=== PATIENT | male | born 1940 | race Caucasian/White ===

== ENCOUNTER 2024-03-29 07:51 | Inpatient (IN) | payer MEDICARE, SELFPAY ==
[2024-03-29] VITALS (14 sets, daily range): BP systolic 163–194; BP diastolic 68–106; PULSE 54–75; RESP 18–95; TEMP 36.4–36.6; O2SAT 93–95; BMI 27.2
--- NOTE | 2024-03-29 08:34 | PC.NURSE ---
Patient presents to ED with c/o SOB with ambulating a short distance. Patient denies chest pain or cough. Patient BIBA, albuterol inhaler given and improvement noted by patient. Per EMS patient with Afib on trial lawyer from 60's to 89 HR. Patient comes from home, uses a walker for ambulation assistance. Patient call light within reach.
--- NOTE | 2024-03-29 11:09 | XR_ITS ---
Examination: PA lateral chest 2 views TECHNIQUE: Upright PA lateral chest 2 views Exam date and time: March 21, 2024 1142 hours Comparison January 05, 2021 INDICATIONS: Shortness of breath today. FINDINGS: Mild to moderate CHF Mild to moderate enlargement cardiac contour CABG Prominent vascular congestion Perihilar basilar edema with small to moderate bilateral pleural effusions Increased AP dimension chest IMPRESSION: Mild to moderate CHF
--- NOTE | 2024-03-29 11:09 | EKG_ITS ---
[facility] Test Date: 2024-03-29 Pat Name: PADMA DUGAN Department: Room: - Gender: Male Utilization Review Nurse: : 1940 Requested By: Jim Kendall Order Number: [id number] Reading MD: Jim Kendall Measurements Intervals [place] Rate: 61 P: [place]: QRS: 26 QRSD: 97 T: 0 QT: 217 QTc: 219 Interpretive Statements ATRIAL FIBRILLATION NONSPECIFIC ST & T-WAVE ABNORMALITY ABNORMAL RHYTHM ECG No previous ECG available for comparison /store/S0/[id number]/[id number].pdf
--- NOTE | 2024-03-29 11:09 | EDNOTE_ITS ---
<Statement entered by Miguelina Wei MD - 04/05/24 16:42> As co-signing physician, I was present and available for consult prn. I concur with the plan and care as documented by the midlevel provider. ED SOB =RME/HPI General Chief Complaint: Shortness of Breath/Dyspnea Stated Complaint: SOB Time Seen by Provider: 03/29/24 11:09 Arrival date/time: 03/29/24 07:51 84 year old male with past medical history of HTN, HDL, DM, bypass(x3) present to emergency room via EMS with c/o of shortness of breath this morning after walking to his truck. SEVERITY: Symptoms are described as being severe with limitations on activities of daily living CONTEXT: The patient is unable to identify any inciting events. DURATION/TIMING: The symptoms started approximately 1 day ago and have been constant since and have been progressive getting worse. ASSOCIATED SYMPTOMS: The patient is unable to identify any other associated symptoms. MODIFYING FACTORS: The patient is unable to identify any alleviating or aggravating symptoms. PERTINENT ROS: no fevers, no cough, no pleuritic pain, no ripping or tearing sensations, denies any lower extremity edema and no unilateral swelling, no chest pain no nausea,vomiting, diarrhea, no dizziness/headache no rash no loc/syncope episode no abd/back pain no dsyuria,urgency,frequency REVIEW OF SYSTEMS: See History of Present Illness - with the exception of those mentioned in the history of present illness, all other systems reviewed and reported as negative GENERAL: In general the patient is awake, in an emergency department gurney. HEAD/EYES/EARS/NOSE/THROAT: normo-cephalic, atraumatic, mucus membranes are moist, anicteric, palpebral conjunctiva is pink, trachea is midline. CARDIOVASCULAR: regular rate and regular rhythm, no murmurs, heart sounds are not distant, strong pulses in all four extremities that are equal and symmetric bilateral upper and lower extremities, normal capillary refill. CHEST/PULMONARY: normal chest rise and fall, good air movement, clear to auscultation bilaterally, normal inspiratory to expiratory ratios without evidence of respiratory distress. NECK: No midline/Paraspinal tenderness, no step off ROM/Strenght intact No Kernig and bruzinski sign. No trauma ABDOMEN: soft, not tender, no masses appreciated BACK: normal range of motion without pain. NEUROLOGICAL: cranio-facial features are symmetric, moves all four extremities equally without obvious limitations or weakness. EXTREMITY: no tenderness to palpation over the long bones or large joints of the bilateral upper and lower extremities, no joint swelling, no joint erythema, no signs of trauma, no unilateral leg swelling and no peripheral edema. SKIN: warm, dry, well-perfused, no jaundice, no rash, no telangiectasias or petechia. PSYCH: calm, cooperative, no evidence of psychosis or agitation Related Data Home Medications ?Medication ?Instructions ?Recorded ?Confirmed atorvastatin 40 mg tablet (Lipitor) 40 mg PO DAILY ##0 04/18/12 01/05/21 nebivolol 10 mg tablet (Bystolic) 10 mg PO DAILY ##0 04/18/12 01/05/21 benazepril 40 mg tablet (Lotensin) 40 mg PO QDAY #0 tabs 11/09/14 01/05/21 aspirin 81 mg tablet,delayed 81 mg PO QDAY 08/17/20 01/05/21 release glipizide 5 mg-metformin 500 mg 1.5 tab PO BID 08/17/20 01/05/21 tablet amlodipine 10 mg tablet 10 mg PO QDAY 01/05/21 01/05/21 cilostazol 50 mg tablet 50 mg PO BID 01/05/21 01/05/21 ferrous sulfate 325 mg (65 mg 325 mg PO QDAY 01/05/21 01/05/21 iron) tablet (iron) insulin glargine 100 unit/mL (3 30 unit subcut QDAY 01/05/21 01/05/21 mL) subcutaneous pen (Lantus Solostar U-100 Insulin) multivitamin 2 tab PO QDAY 01/05/21 01/05/21 Allergies Allergy/AdvReac Type Severity Reaction Status Date / Time No Known Allergies Allergy Verified 01/06/21 11:48 Course Course Course Narrative: plan cbc.cmp, bnp, trop,tsh, cta ekg, cxr covid/flu Quality Measures none Orders Category Date Time Status Admit to Inpatient Status Routine Admission 03/29/24 17:54 Ordered Patient Condition Routine Admission 03/29/24 17:54 Ordered Activity as Tolerated Routine Care 03/29/24 17:55 Ordered Bedside COVID-19 Antigen Test NOW Care 03/29/24 11:09 Active Bedside Influenza A&B Antigen Test NOW Care 03/29/24 11:[address] Screening NOW Care 03/29/24 15:45 Active Continuous Pulse Oximetry NOW Care 03/29/24 17:54 Ordered EKG (ED ONLY) *Do not use* NOW Care 03/29/24 11:10 Completed Fluid restriction QDAY Care 03/29/24 17:54 Ordered Miscellaneous Nursing Order NOW Care 03/29/24 17:59 Ordered Notify provider NEEDED Care 03/29/24 17:54 Ordered Obtain weight daily Care 03/29/24 17:55 Ordered Strict Intake and Output Routine Care 03/29/24 17:55 Ordered Consult to Cardiology Routine Cons 03/29/24 18:00 Ordered Diet Low Sodium (2gm) Diet 03/29/24 Dinner Ordered CA echo doppler complete Routine Exams 03/29/24 17:[address] angio chest Stat Exams 03/29/24 15:44 Completed EKG (ED Only) Stat Exams 03/29/24 11:09 Draft XR chest 2V Stat Exams 03/29/24 11:09 Completed BNP [B-Type Natriuretic Peptide] Stat Lab 03/29/24 11:00 Completed Basic Metabolic Panel AM DRAW Lab 03/30/24 05:00 Ordered Basic Metabolic Panel AM DRAW Lab 03/31/24 05:00 Ordered Basic Metabolic Panel AM DRAW Lab 04/01/24 05:00 Ordered Basic Metabolic Panel AM DRAW Lab 04/02/24 05:00 Ordered Basic Metabolic Panel AM DRAW Lab 04/03/24 05:00 Ordered Beta Hydroxybutyrate Stat Lab 03/29/24 11:52 Completed CBC AM DRAW Lab 03/30/24 05:00 Ordered CBC AM DRAW Lab 03/31/24 05:00 Ordered CBC AM DRAW Lab 04/01/24 05:00 Ordered CBC AM DRAW Lab 04/02/24 05:00 Ordered CBC AM DRAW Lab 04/03/24 05:00 Ordered CBC Stat Lab 03/29/24 11:00 Completed CMP [Comprehensive Metabolic Panel] Stat Lab 03/29/24 11:00 Completed Free T4 (Free Thyroxine) Stat Lab 03/29/24 11:00 Completed Lipase Stat Lab 03/29/24 11:00 Completed Lipid Panel AM DRAW Lab 03/30/24 05:00 Ordered Magnesium AM DRAW Lab 03/30/24 05:00 Ordered Magnesium AM DRAW Lab 03/31/24 05:00 Ordered Magnesium AM DRAW Lab 04/01/24 05:00 Ordered Magnesium AM DRAW Lab 04/02/24 05:00 Ordered Magnesium AM DRAW Lab 04/03/24 05:00 Ordered Phosphorous AM DRAW Lab 03/30/24 05:00 Ordered TSH [Thyroid Stimulating Hormone] Stat Lab 03/29/24 11:00 Completed Troponin I Stat Lab 03/29/24 11:00 Completed Acetaminophen Tab [Tylenol Tab] Med 03/29/24 17:54 Ordered 650 mg PO Q6H PRN Acetaminophen Tab [Tylenol Tab] Med 03/29/24 17:54 Ordered 650 mg PO Q6H PRN Furosemide Inj [Lasix Inj] Med 03/29/24 17:59 Once 20 mg IVP X1 ONE Furosemide Inj [Lasix Inj] Med 03/30/24 09:00 Ordered 40 mg IVP QDAY Furosemide [Lasix Inj] Med 03/29/24 11:59 Discontinued 20 mg IVP X1 ONE Heparin Inj Med 03/29/24 21:00 Ordered 5,000 unit SC BID Nebivolol Med 03/29/24 18:15 Ordered 10 mg PO DAILY Ondansetron Inj [Zofran Inj] Med 03/29/24 17:54 Ordered 4 mg IV Q6H PRN Pantoprazole [Protonix] Med 03/30/24 09:00 Ordered 40 mg PO QDAY amLODIPine BESYLATE [Norvasc] Med 03/29/24 18:05 Ordered 10 mg PO QDAY cilostazoL [Pletal] Med 03/30/24 09:00 Ordered 100 mg PO DAILY hydrALAZINE HCL [Apresoline] Med 03/29/24 18:15 Ordered 50 mg PO TID Code Status Routine Oth 03/29/24 17:54 Ordered Oxygen Delivery NOW RT 03/29/24 11:22 Active Oxygen Delivery PRN RT 03/29/24 17:54 Ordered Reevaluation(s) Reevaluation #1: pt is feeling better, currently at 96% on RA, will do ambulation trail. Reevaluation #2: attempt to ambulated patient, currently at 84% RA, will get CTA to rule out PE then admit for hypoxia 88 % RA while ambulating , pt is willing to be admit Vital Signs Vital signs: Vital Signs Pulse Rate 74 03/29/24 08:03 Shortness of Breath / Dyspnea Patient data External records reviewed:: [facility] previous records Clinical information provided by:: patient Social determinants that could affect healthcare access:: none Patient has the following chronic illnesses:: HTN, Bypass, HDL, DM How is presenting disease/condition affected by chronic disease/condition?: exacerbated by Evaluation data The following diagnostics were reviewed and interpreted by me:: lab results, radiology exam(s) and EKG tracing(s) Lab and/or radiology exams considered but not ordered:: none Interpretation Summary: cxr: Mild to moderate CHF Mild to moderate enlargement cardiac contour CABG Prominent vascular congestion Perihilar basilar edema with small to moderate bilateral pleural effusions Increased AP dimension chest IMPRESSION: Mild to moderate CHF BNP 403 given lasix 20mg IV cbc/cmp similar or improvement from previous labs trop negative covid/flu negative CTA: Negative for pulmonary artery emboli Pulmonary artery hypertension Mild CHF Multiple thyroid nodules TSH: 5 T4 wnl Medications / Prescriptions Medications or Prescriptions considered but not ordered:: none Medication administrations:: Medication Administration History Discontinued Medications Furosemide (Furosemide Inj 10 Mg/Ml Vial 2 Ml) 20 mg IVP X1 ONE Stop: 03/29/24 12:00 Last Admin: 03/29/24 13:01 Dose: 20 mg Documented By: CHRISTELLE lasix 20mg IV Consultations Consultation(s) initiated? (list below): Yes Consultation #1 (Physician, Specialty, Details): 170 called out to Hospitalist for admission Consultation #2 (Physician, Specialty, Details): 170 spoke with hosptial resident will speak with Dr. Kaplan Diagnosis Shortness of Breath Differential Diagnosis: acute exacerbation of chronic obstructive airways disease, congestive heart failure, community acquired pneumonia, asthma with exacerbation, pulmonary embolism and other Most likely diagnosis given after review of the tests above:: CHF Admission Indicated Admission indicated?: indicated Admission Request Was there a request for admission?: Yes Admission Attestation Admission request attestation: Discussed case with [] from Hospitalist service regarding admission. Discussed patients ED course, exam findings, labs, and radiology results. The Hospitalist [agrees,declines] to accept the patient for admission. Disposition Plan Disposition Plan: Admit Discharge Plan Plan Patient Disposition: Admit Acute Care w/in Hospital Health Concerns: Follow up with your press and blow machine tender as directed Return to ED if symptoms worsen Prescriptions/Referrals Prescriptions/Med Rec: No Action atorvastatin [Lipitor] 40 MG tablet 40 mg PO DAILY Qty: 0 Bystolic 10 MG tablet 10 mg PO DAILY Qty: 0 benazepril [Lotensin] 40 MG tablet 40 mg PO QDAY Qty: 0 glipizide-metformin 5-500 mg Tablet 1.5 tab PO BID Hold Instructions: Resume on 08/20/20. start on friday aspirin 81 mg Tablet,Delayed Release (Dr/Ec) 81 mg PO QDAY Hold Instructions: Resume on 08/18/20. restart aspirin tomorrow multivitamin Tablet 2 tab PO QDAY cilostazol 50 mg tablet 50 mg PO BID amlodipine 10 mg tablet 10 mg PO QDAY ferrous sulfate [iron] 325 mg (65 mg iron) Tablet 325 mg PO QDAY Lantus Solostar U-100 Insulin 100 unit/mL (3 mL) insulin pen 30 unit SUBCUT QDAY Referrals: Mendez Whiting MD [Primary Care Provider] - In 1 week Problem List Clinical Impression: CHF (congestive heart failure), Acute dyspnea, Hypoxia Patient/Caregiver Discharge Instructions Education Materials: Coping with Heart Failure Print Language: Indian Stand Alone Forms: Varsha Award Info., Patient Portal Info Letter
[2024-03-29 11:22] LABS: Basophils # (Auto) 0.1 Thou/mm3 (0.0-0.2); Basophils % (Auto) 1 % (0-2.5); Eosinophils # (Auto) 0.3 Thou/mm3 (0.0-0.5); Eosinophils % (Auto) 4 % (0-10); Hemoglobin 11.3 g/dL (13.5-16.0); Immature Granulocytes % (Auto) 1 % (0-0); Immature Granulocytes Auto 0.04 Thou/mm3 (0.00-0.00); Lymphocytes # (Auto) 1.2 Thou/mm3 (1.0-4.8); Lymphocytes % (Auto) 15 % (10-50); Mean Corpuscular HGB Conc 33.2 g/dl (31.0-37.0); Mean Corpuscular Hemoglobin 30.6 pg (25.0-35.0); Mean Corpuscular Volume 92 fL (80-100); Monocytes # (Auto) 0.5 Thou/mm3 (0.0-0.8); Monocytes % (Auto) 6 % (0-12); Neutrophils # (Auto) 6.1 Thou/mm3 (1.8-7.7); Neutrophils % (Auto) 74 % (37-80); Nucleated Red Blood Cell % 0 /100 WBC (0); Platelet Count 276 Thou/mm3 (140-440); RDW Standard Deviation 52.6 fL (35.1-43.9); Red Blood Count 3.69 Miln/mm3 (4.50-5.90); White Blood Count 8.2 Thou/mm3 (3.8-10.6)
[2024-03-29 11:41] LABS: Alanine Aminotransferase 28 U/L (10-49); Albumin/Globulin Ratio 1.3 (1.2-2.2); Alkaline Phosphatase 88 U/L (46-116); Anion Gap 6 (7-16); Aspartate Amino Transferase 25 U/L (0-34); BUN/Creatinine Ratio 18 Ratio (12-20); Bilirubin,Total 0.8 mg/dL (0.3-1.2); Blood Urea Nitrogen 31 mg/dL (9-23); Calcium 9.4 mg/dL (8.3-10.6); Calcium (Corrected) 9.4 mg/dL (8.5-10.1); Chloride 109 mMol/L (98-107); Creatinine (Component) 1.7 mg/dL (0.6-1.3); Estimated Creatinine Clearance 34.9 mL/min (>60); Glucose 127 mg/dL (74-106); Lipase 41 U/L (12-53); Osmolality,Calculated 282 (275-295); Sodium 137 mMol/L (136-145); Troponin I < 0.020 ng/mL (0.0-0.045); eGFR 39 See Note
[2024-03-29 11:49] LABS: B-Type Natriuretic Peptide 403 pg/mL (0-100)
[2024-03-29 11:57] LABS: Beta Hydroxybutyrate 0.2 mmol/L (<0.6)
[2024-03-29] MEDS: FUROSEMIDE INJ 10 MG/ML VIAL 2 ML 20 MG IVP (13:01)
--- NOTE | 2024-03-29 15:44 | XR_ITS ---
Examination: CTA chest with intravenous contrast 2-D reconstructions 3-D reconstructions, vascular Date and time of exam: March 29 2024 at 1616 hours INDICATIONS: Hypoxia shortness of breath chest pain today CTDI: vol (mGy) 24.3 DLP: (mGycm) 445 Technique: Multiple axial sections of the thorax have been obtained. 3 mm slice thickness, from below the hemidiaphragms to above the apices of the lungs. Mediastinal and lung density settings have been obtained. 2-D sagittal and coronal reconstructions. 3-D angiographic renderings, 3-D volume renderings, 3D post processing, vascular maximum intensity projections obtained. Contrast administered is 60 cc Isovue-300. Low dose protocols were performed. One or more of the following dose reduction techniques were used; automated exposure control, adjustment of the mA and/or KV according to patient size, use of iterative reconstruction technique. Findings: 8 mm left thyroid nodule image 12 8 mm left thyroid nodule image 22 12 mm right thyroid nodule image 27 Thoracic aortic calcification, no aneurysmal dilatation or dissection Main pulmonary artery segment is enlarged, 41 mm No pulmonary artery emboli Significant vascular congestion Moderate right pleural effusion mild left pleural effusion Dilated bronchi in the lower lobes Mild septal edema in the lower lung zones No visualized liver or splenic lesion Absent gallbladder IMPRESSION: Negative for pulmonary artery emboli Pulmonary artery hypertension Mild CHF Multiple thyroid nodules
--- NOTE | 2024-03-29 16:03 | PC.NURSE ---
Patient ambulated around ED for 2 laps around the nurse station with assistance of IV pole as patient normally ambulates with walker at home, after patient was guided back to room and placed on pulse oximeter with saturations down to 88% on room air.
[2024-03-29 17:29] LABS: Free T4 (Free Thyroxine) 1.13 ng/dL (0.89-1.76); Thyroid Stimulating Hormone 5.72 uIU/mL (0.55-4.78)
--- NOTE | 2024-03-29 17:58 | ECHO_ITS ---
Transthoracic Echo Report Ht (in): 72 Wt (lb): 201 Exam Location: Portable Status: Emergency Refrigeration Tech: Lynn Bustillos Indications: Procedure Performed: BP: 167 / 79 HR: 58 Rhythm: Bradycardia/, Atrial fibrillation Technical Quality: Fair MEASUREMENTS (Male / Female) Normal Values 2D ECHO LV Diastolic Diameter PLAX 5.1 cm 4.2 - 5.9 / 3.9 - 5.3 cm LV Systolic Diameter PLAX 3.2 cm IVS Diastolic Thickness 1.0 cm 0.6 - 1.0 / 0.6 - 0.9 cm LVPW Diastolic Thickness 0.9 cm 0.6 - 1.0 / 0.6 - 0.9 cm LV Relative Wall Thickness 0.4 LVOT Diameter 1.8 cm LA Volume Index 52.9 cm?/m? 16 - 28 cm?/m? Ascending Aorta Diameter 3.3 cm M-MODE Aortic Root Diameter MM 3.4 cm LA Systolic Diameter MM 5.6 cm LA Ao Ratio MM 1.6 AV Cusp Separation MM 2.3 cm DOPPLER AV Peak Velocity 202.0 cm/s AV Peak Gradient 16.3 mmHg AV Mean Gradient 7.0 mmHg AV Velocity Time Integral 43.4 cm LVOT Peak Velocity 152.0 cm/s LVOT Peak Gradient 9.2 mmHg LVOT Velocity Time Integral 29.1 cm LVOT Cardiac Index 1982.7 cm?/min?m? AV Area Cont Eq vti 1.7 cm? AV Area Cont Eq pk 1.9 cm? MV Peak Velocity 189.0 cm/s MV Peak Gradient 14.3 mmHg MV Mean Velocity 86.7 cm/s MV Mean Gradient 4.0 mmHg MV Area PHT 1.8 cm? MR Peak Velocity 375.0 cm/s MR Peak Gradient 56.3 mmHg Mitral E Point Velocity 172.0 cm/s Mitral A Point Velocity 5.3 cm/s Mitral E to A Ratio 32.5 LV E' Lateral Velocity 8.6 cm/s Mitral E to LV E' Lateral Ratio 20.0 LV E' Septal Velocity 6.3 cm/s Mitral E to LV E' Septal Ratio 27.3 TR Peak Velocity 163.0 cm/s TR Peak Gradient 10.6 mmHg FINDINGS Left Ventricle Normal left ventricular size, wall thickness, systolic function with no obvious regional wall motion abnormalities. The ejection fraction is visually estimated at 60-65 %. Right Ventricle The right ventricle is mildly dilated. Normal systolic function. The estimated right ventricular sys tolic pressure, 16mmHg. RAP 5. Left Atrium The left atrium is severely dilated. Right Atrium The right atrium is mildly dilated. Atrial Septum The interatrial septum appears normal with no evidence of a shunt. Aorta The aorta is normal by two-dimensional, color flow and Doppler interrogation. Mitral Valve The mitral valve is mildly MAC. There is mild mitral valve regurgitation. Aortic Valve The aortic valve is trileaflet and normal by two-dimensional, color flow and Doppler interrogation. There is trace aortic valve regurgitation. Tricuspid Valve The tricuspid valve is normal by two-dimensional, color flow and Doppler interrogation. There is mil d tricuspid valve regurgitation. Pulmonic Valve There is trace pulmonic valve regurgitation. Vessels The pulmonary artery appears normal. The inferior vena cava pulmonary and hepatic veins appear billie l. Pericardium The pericardium is normal by two-dimensional imaging. There is no significant pericardial effusion. CONCLUSIONS Normal LV size and function. 60-65% Mild RV dilatation. Normal RV function. Severe LA dilatation. Mild RA dilatation Mild MAC. Mild MR, Mild TR. Trace AI, PI. Bouchra Clifton (Electronically Signed) Final Date: 30 March 2024 23:10
--- NOTE | 2024-03-29 18:09 | ESHP_ITS ---
Documentation for date of: 03/29/24 [facility] History of Present Illness History of present illness: Dominik Willard is an 84-year-old male with a past medical history of CAD status post CABG 2009, hypertension, hyperlipidemia, type 2 diabetes mellitus, and PAD who presents with tachypnea and LINTON for 4 days. Patient states that he was in his usual state of health until Friday, on his daily 3/4 mile walk but experienced tachypnea and LINTON, which is unusual for him. Symptoms progressed and prompted him to visit the ED. He has never had to come to the ED for similar symptoms in the past, denies chest discomfort, denies lower extremity edema, and is not aware of a prior diagnosis of heart failure. He is followed outpatient by Dr. Roy. Otherwise, denies fever, chills, cough, abdominal pain, urinary symptoms, change in bowel movements. ED course: Upon arrival to ED patient O2 88-99% on room air, increased to 93-94% on 2 L NC. During patient encounter, on room air saturating 93% on room air. BP 181/68, RR 21, otherwise unremarkable. Creatinine 1.7 (baseline 1.5-1.8), GFR 39, BNP 403, troponins negative, TSH elevated, free T4 within normal limits. CTA chest: Negative for PE, significant vascular congestion, moderate right and mild left pleural effusions EKG: Heart rate 61, A-fib PMHx: Hypertension, hyperlipidemia, type 2 diabetes mellitus, CAD, PAD, distant history of prostate cancer Medications: Hydralazine 50 mg 3 times daily, atorvastatin 40 mg daily, amlodipine 10 mg daily, nebivolol 10 mg daily, aspirin 81 mg daily, cilostazol 100 mg daily, benazepril 40 mg daily, glipizide-metformin 5-500 mg daily SHx: Distant history of smoking 2-3 packs/day in high school, no alcohol, no illicit drug use PSHx: Cholecystectomy, CABG Review of Systems Review of Systems Systems Reviewed: All systems reviewed, normal except as documented Exam Vital Signs Temp Pulse Resp BP Pulse Ox O2 Del Method O2 Flow Rate 97.7 F 69 23 H 194/93 H 93 L Room Air 2 03/29/24 16:15 03/29/24 16:15 03/29/24 16:15 03/29/24 16:15 03/29/24 16:15 03/29/24 16:15 03/29/24 10:44 Narrative Exam General: AOx3, no acute distress, able to speak full sentences HEENT: NC/AT, mucous membranes moist, bilateral sclera anicteric Cardiovascular: S1/S2 present, no murmurs appreciated Pulmonary: clear to auscultation bilaterally, no rales/rhonchi/wheezes Abdominal: soft, non-tender, non-distended, no rebound/guarding, normal bowel sounds present Musculoskeletal: 1+ bilateral lower extremity edema; normal ROM Skin: warm and dry, intact, no rashes Neuro: CN II-XII intact, no focal deficits Results: Labs 04/01/24 04:52 04/01/24 14:10 Labs: Short CBC 03/29/24 Range/Units 11:00 WBC 8.2 (3.8-10.6) Thou/mm3 Hgb 11.3 L (13.5-16.0) g/dL Hct 34.0 L (41.0-53.0) % Plt Count 276 (140-440) Thou/mm3 BMP 03/29/24 11:00 Sodium 137 Potassium 4.0 Chloride 109 H Carbon Dioxide 22.0 BUN 31 H Creatinine 1.7 H Glucose 127 H Calcium 9.4 Cardiac Enzymes 03/29/24 Range/Units 11:00 Troponin I < 0.020 (0.0-0.045) ng/mL Liver Function 03/29/24 Range/Units 11:00 Total Bilirubin 0.8 (0.3-1.2) mg/dL AST 25 (0-34) U/L ALT 28 (10-49) U/L Alkaline Phosphatase 88 (46-116) U/L Albumin 4.0 (3.4-4.8) gm/dL Quality Measures Quality Measures none Advance care planning discussed with:: patient Medications Home Medications and Allergies Home Medications ?Medication ?Instructions ?Recorded ?Confirmed ?Type atorvastatin 40 mg tablet (Lipitor) 40 mg PO DAILY ##0 04/18/12 03/30/24 History nebivolol 10 mg tablet (Bystolic) 10 mg PO DAILY ##0 04/18/12 03/30/24 History benazepril 40 mg tablet (Lotensin) 40 mg PO QDAY #0 tabs 11/09/14 03/30/24 History aspirin 81 mg tablet,delayed 81 mg PO QDAY 08/17/20 03/30/24 History release glipizide 5 mg-metformin 500 mg 1 tab PO BID 08/17/20 03/30/24 History tablet amlodipine 10 mg tablet 10 mg PO QDAY 01/05/21 03/30/24 History cilostazol 50 mg tablet 100 mg PO BID 01/05/21 03/30/24 History ferrous sulfate 325 mg (65 mg 65 mg PO QDAY 01/05/21 03/30/24 History iron) tablet (iron) insulin glargine 100 unit/mL (3 10 unit subcut QDAY 01/05/21 03/30/24 History mL) subcutaneous pen (Lantus Solostar U-100 Insulin) multivitamin 2 tab PO QDAY 01/05/21 03/30/24 History hydralazine 50 mg tablet 50 mg PO TID 03/30/24 03/30/24 History Allergies Allergy/AdvReac Type Severity Reaction Status Date / Time No Known Allergies Allergy Verified 01/06/21 11:48 Visit Medications Discontinued Medications Furosemide (Furosemide Inj 10 Mg/Ml Vial 2 Ml) 20 mg IVP X1 ONE Stop: 03/29/24 12:00 Last Admin: 03/29/24 13:01 Dose: 20 mg Assessment & Plan Plan Dominik Willard is an 84-year-old male with a past medical history of CAD status post CABG 2009, hypertension, hyperlipidemia, type 2 diabetes mellitus, and PAD who presents with tachypnea and LINTON for 4 days. Patient states that he was in his usual state of health until Friday, on his daily 3/4 mile walk but experienced tachypnea and LINTON, which is unusual for him. Symptoms progressed and prompted him to visit the ED. He has never had to come to the ED for similar symptoms in the past, denies chest discomfort, denies lower extremity edema, and is not aware of a prior diagnosis of heart failure. He is followed outpatient by Dr. Roy. Admitted for work-up and evaluation for new onset heart failure. #Acute hypoxic respiratory failure #? Congestive heart failure LINTON for 4 days, BLE edema, BNP 400s, signs of vascular congestion on imaging. Given risk factors of HTN, T2DM, HLD, history of CABG and PAD, suspect ischemic cardiomyopathy causing HF. Echo 2021 showed EF 65%. Will obtain echo this admission. -Cardiology consulted, appreciate recommendations -Lasix 40 mg IV daily -Monitor K and Mg, replete as necessary -Fluid restriction 1.5 L/day, daily weights, strict I/O -Follow-up echo #Hypertensive urgency #Hypertension Will defer home benazepril given elevated creatinine and recent CTA. -Amlodipine 10 mg p.o. daily -Hydralazine 50 mg p.o. twice daily -Nebivolol 10 mg p.o. daily #Chronic kidney disease, stage 3B Creatinine 1.7, baseline 1.4-1.8. GFR 39. #Type 2 diabetes mellitus Will defer home glipizide-metformin. On home Lantus 5 mg twice daily. -Lantus 5 mg daily -Sensitive SSI lispro -Follow-up A1c #Coronary artery disease status post CABG -Aspirin 81 mg p.o. daily -Atorvastatin 40 mg p.o. at bedtime -Follow-up lipid panel #Peripheral artery disease -Cilostazol 100 mg p.o. daily Hospital management: Disposition: 2-3 hospital nights Fluids: Will defer in light of CHF exacerbation Diet: Low-sodium Lines: Peripheral DVT prophylaxis: Heparin SC twice daily GI prophylaxis: Pantoprazole 40 mg p.o. daily Bhagat: Not indicated CODE STATUS: full code ----- Plan discussed with attending physician Dr. Domenica Lopez MD PGY-1 Internal Medicine Attending Provider Attestation/Addendum Face to face evaluation was performed by me. I have personally seen and examined the patient. I discussed the assessment and plan with the entire medicine team. I reviewed available medical records, imaging studies, laboratory results. I agree with the above subjective data, objective findings, assessment and plan except as corrected by me or noted below acute hypoxic respiratory failure hypertensive emergency acute chf, unknown type, unable to further specify - iv diuresis wean o2 as able echo monitor labs and vitals, also clinical course closely -
[2024-03-29] MEDS: amLODIPine BESYLATE 5 MG TABLET 10 MG PO (20:28)
[2024-03-29] MEDS: ASPIRIN EC 81 MG TABEC PO (20:29)
[2024-03-29] MEDS: hydrALAZINE HCL 25 MG TABLET 50 MG PO (20:29)
[2024-03-29] MEDS: ATORVASTATIN CALCIUM 20 MG TABLET 40 MG PO (20:30)
[2024-03-29] MEDS: NEBIVOLOL HCL 5 MG TABLET (NON-FORMULARY) 10 MG PO (20:30)
[2024-03-29] MEDS: FUROSEMIDE INJ 10 MG/ML 4ML VIAL 20 MG IVP (20:45)
--- NOTE | 2024-03-29 21:09 | PC.NURSE ---
SPOKE TO DR GROVER HOLDING HEPARIN UNTIL GET TO FLOOR.
--- NOTE | 2024-03-29 21:35 | PC.NURSE ---
REPORT CALLED TO MATTHEW MARADIAGA. ALL QUESTIONS ASKED AND ANSWERED. PATIENT TRANSFERRED TO FLOOR WITH STAFF. NO DISTRESS NOTED ON TRANSFER.
[2024-03-29] MEDS: HEPARIN SOD INJ 5000 UNIT/ML VIAL SC (22:09)
[2024-03-30] VITALS (19 sets, daily range): BP systolic 136–167; BP diastolic 59–93; PULSE 36–91; RESP 15–93; TEMP 36.6–37.1; O2SAT 93–98; BMI 26.7
--- NOTE | 2024-03-30 02:30 | PC.NURSE ---
PATIENT HR WENT DOWN TO 30'S. PATIENT WAS ASLEEP AND NO DISTRESS. WHEN WOKEN UP HR WENT UP TO 66, RR 18, O2 SAT 99% 2LNC, T: 98.3, BP 96/77 L ARM, 170/[address] SCHAEFFER, STATED TO RETAKE BP IN 30 MINS AND NOTIFY HER.
--- NOTE | 2024-03-30 03:45 | PC.NURSE ---
Patient BP IS 167/79, NOTIFIED DR SCHAEFFER OF BP AND HR 60'S. NO NEW ORDERS RECEIVED.
[2024-03-30 06:12] LABS: Basophils # (Auto) 0.1 Thou/mm3 (0.0-0.2); Basophils % (Auto) 1 % (0-2.5); Eosinophils # (Auto) 0.4 Thou/mm3 (0.0-0.5); Eosinophils % (Auto) 5 % (0-10); Hematocrit 32.4 % (41.0-53.0); Hemoglobin 10.7 g/dL (13.5-16.0); Immature Granulocytes % (Auto) 0 % (0-0); Immature Granulocytes Auto 0.03 Thou/mm3 (0.00-0.00); Lymphocytes # (Auto) 1.6 Thou/mm3 (1.0-4.8); Lymphocytes % (Auto) 21 % (10-50); Mean Corpuscular Hemoglobin 30.2 pg (25.0-35.0); Mean Corpuscular Volume 92 fL (80-100); Monocytes # (Auto) 0.7 Thou/mm3 (0.0-0.8); Monocytes % (Auto) 10 % (0-12); Neutrophils # (Auto) 4.8 Thou/mm3 (1.8-7.7); Neutrophils % (Auto) 62 % (37-80); Nucleated Red Blood Cell % 0 /100 WBC (0); Platelet Count 265 Thou/mm3 (140-440); RDW Standard Deviation 51.7 fL (35.1-43.9); Red Blood Count 3.54 Miln/mm3 (4.50-5.90); White Blood Count 7.7 Thou/mm3 (3.8-10.6)
[2024-03-30 06:17] LABS: Glucose Estimated Average 134 mg/dL (80-131); Hemoglobin A1C 6.3 % Hgb (4.8-6.0)
[2024-03-30 07:04] LABS: Anion Gap 7 (7-16); BUN/Creatinine Ratio 18 Ratio (12-20); Blood Urea Nitrogen 29 mg/dL (9-23); Calcium 9.7 mg/dL (8.3-10.6); Carbon Dioxide 24.2 mMol/L (20.0-31.0); Chloride 108 mMol/L (98-107); Cholesterol 151 mg/dL (132-200); Creatinine (Component) 1.6 mg/dL (0.6-1.3); Glucose 99 mg/dL (74-106); HDL Cholesterol 38 mg/dL (40-60); LDL Cholesterol,Calculated 97 mg/dL (0-130); Osmolality,Calculated 283 (275-295); Phosphorous 3.7 mg/dL (2.4-5.1); Potassium 3.6 mMol/L (3.4-5.1); Sodium 139 mMol/L (136-145); Triglycerides 79 mg/dL (30-150); eGFR 42 See Note
--- NOTE | 2024-03-30 09:15 | PC.NURSE ---
Pt scheduled for beta alexy, Nebivolol this AM. Dr. Lopez made aware of patient SB with HR in 30's per third shift lieutenant report. Cardiac strips captured 34-39 bpm; per Farrah RN lowest rate visually seen was 31 bpm. I reported to Dr. Lopez patient sustaining HR in 60's at this current time and if indicated to administer; Dr. Lopez with orders to administer despite SB. Orders carried out; Charge Nurse Hanna and Game Preserve Manager made aware of concern; we will continue to monitor cardiac exercise specialist and patient for symptoms.
[2024-03-30] MEDS: amLODIPine BESYLATE 5 MG TABLET 10 MG PO (09:23)
[2024-03-30] MEDS: cilostazoL 50 MG TABLET 100 MG PO (09:23)
[2024-03-30] MEDS: POTASSIUM CHLORIDE 20 mEq TABCR 40 MEQ PO (09:24)
[2024-03-30] MEDS: FUROSEMIDE INJ 10 MG/ML 4ML VIAL 40 MG IVP (09:24)
[2024-03-30] MEDS: ASPIRIN EC 81 MG TABEC PO (09:24)
[2024-03-30] MEDS: PANTOPRAZOLE 40 MG TABLET PO (09:24)
[2024-03-30] MEDS: INSULIN GLARGINE (Lantus) 5 UNIT/0.05 ML (PER 5 UNITS) SC (09:25)
[2024-03-30] MEDS: HEPARIN SOD INJ 5000 UNIT/ML VIAL SC ×2 (09:26→21:28)
--- NOTE | 2024-03-30 09:31 | ESCONSULT_ITS ---
<Statement entered by Alfie Roy MD - 04/01/24 20:18> I personally examined the patient evaluated the patient appears to be in clinically better he is admitted to hospital with congestive heart failure symptoms has known history of CAD bypass surgery HFpEF now has atrial fibrillation appears to be precipitating factor and his congestive heart failure. Clinically improving continue diuretic therapy and rate control for A- fib as well as amiodarone. I evaluated the patient with the resident physician Dr. Ibeth Wilson, PGY 2 recommended to continue medical management no plan for any current intervention diurese the patient possibly discharge within 1 to 2 days. I will do further evaluation as an outpatient. All essential complaints are reviewed by me personally spent more than 45 minutes going over all the questions concerns evaluation and management. HPI Data of Consult Requesting Physician: Scottie Aslton MD Admitting Provider: Liang Metzger MD Attending Provider: Scottie Alston MD Primary Care Provider: Mendez Whiting MD Consult Narrative Reason for consult: New onset CHF History of present illness: An 84-year-old hard of hearing male who ambulates via walker with history of CAD status post CABG 2009 (not oxygen dependent at home ), hypertension, hyperlipidemia, type 2 diabetes mellitus, and PAD presented to the ED of [facility] on 03/29/2024 for chief complaint of shortness of breath. Patient states that he was in his usual state of health until Friday03/26/2024 on his daily 3/4 mile walk.Exertional shortness of breath noted on his daily walk. Patient denied any chest pain, palpitations, nausea, vomiting, blurry vision, dizziness, abdominal pain, jaw pain, shoulder discomfort, diaphoresis, constipation or diarrhea. He stated when he was ready to put his walker into his truck, he did not had the strength to do it and he resumed being short of breath. 03/21/2024, he became extremely concerned and voiced this to his . His called the emergency department. The ambulance brought him into the ED. He is followed outpatient by Dr. Roy. Patient was admitted for management of hypertensive urgency and AHRF 2/2 volume overloaded state likely 2/2 CHF. Cardiology was consulted for new onset CHF and atriall fibrillation. ED course: Blood pressure: 181/68, heart rate 74, respiratory rate 18, temperature 97.7 F, O2 sat 94% on 2L NC. Creatinine 1.7 (baseline 1.5-1.8), GFR 39, BNP 403, troponins negative, TSH elevated, free T4 within normal limits. CTA chest: Negative for PE, 8 mm left thyroid nodule , 8 mm left thyroid nodule,12 mm right thyroid nodule, Moderate right pleural effusion mild left pleural effusion Thoracic aortic calcification, no aneurysmal dilatation or dissection, Main pulmonary artery segment is enlarged, 41 mm, Significant vascular congestion, Dilated bronchi in the lower lobes, Mild septal edema in the lower lung zones EKG showed A-fib, Heart rate 61 CXr showed Mild to moderate CHF, Mild to moderate enlargement cardiac contour, CABG, Prominent vascular congestion with joaquin B lines,, Perihilar basilar edema with small to moderate bilateral pleural effusions, Increased AP dimension chest PMHx: Hypertension, hyperlipidemia, type 2 diabetes mellitus, CAD, PAD, distant history of prostate cancer Allergies: None Medications: Hydralazine 50 mg 3 times daily, atorvastatin 40 mg daily, amlodipine 10 mg daily, nebivolol 10 mg daily, aspirin 81 mg daily, cilostazol 100 mg daily, benazepril 40 mg daily, glipizide-metformin 5-500 mg daily Mother: Diabetes maternal side; paternal-none Social history: Denies drinking or smoking, 7years of smoking history?1.5 pack/day in his early 30s. Denies any illicit drug use. Surgical history: CABG s/p stents, cholecystectomy,left ankle surgical repair, hip surgery cc:: cc: Scottie Alston MD Review of Systems Review of Systems Systems Reviewed: All systems reviewed, normal except as documented Past Medical History Past Medical History NEUROLOGIC: Negative Neurological Disorders or Seizures CARDIAC: Positive Coronary Artery Disease, Hypercholesterolemia and Hypertension; Negative Congestive Heart Failure RESPIRATORY: Positive Pneumonia; Negative Chronic Obstructive Pulmonary Disease (COPD) GASTROINTESTINAL: Positive Gall Bladder Disease (had removed around 8 years ago) GENITOURINARY: Positive Prostate Cancer (4 years ago. states caught early. did radiation); Negative Genitourinary Disorders or Renal Disease MUSCULOSKELETAL: Positive Arthritis and Fractures (left hip. fell off ladder); Negative Musculoskeletal Disorders ENT: Positive Deafness ([place] angel[place]. hearing aids left at homw) ENDOCRINE: Positive Diabetes Mellitus Type 2; Negative Diabetes Mellitus Type 1 HEMATOLOGIC: Negative Blood Disorders OTHER HISTORY: Positive Cancer and Prostate Cancer (4 years ago. states caught early. did radiation); Negative Blood Transfusions, Blood Transfusion Reaction or Anesthesia Reactions Family History OTHER FAMILY HX: Denies family history of blood clots Surgical History SURGICAL: Positive Cardiac Surgery, Coronary Artery Bypass Graft and Eye Surgery (angelique eye implants) OTHER SURGICAL HX: cholecystectomy and L ankle surgery decades ago. Social History SMOKING STATUS: Former smoker SUBSTANCE USE: does not use Travel History EBOLA RISK: No Past Medical History Comments PMH COMMENT: CABG 11 years ago. Type 2 Diabetes Hypertension Hyperlipidemia Exam Vital Signs Temp Pulse Resp BP Pulse Ox O2 Del Method O2 Flow Rate 98.0 F 88 15 159/79 H 96 Room Air 2 03/30/24 08:00 03/30/24 09:24 03/30/24 08:00 03/30/24 09:24 03/30/24 08:00 03/30/24 08:00 03/30/24 06:40 Narrative Exam Constitutional: hard of hearing male with eye glasses, well-developed, well- nourished, in no acute distress, lying in bed. HEENT: NCAT, EOMI, reactive round pupils b/l, patent nares b/l, moist mucous membranes, on 2L nasal cannula Lung: CTAB, no wheezing, no rhonchi, no crackles. diminished breath sounds lower lobes bilaterally Heart: Regular S1S2, no murmurs, gallops, or rubs Abdomen: Soft, non-distended, non-tender, ++bowel sounds Extremities: No cyanosis, clubbing, 1+ pitting edema of b/l legs, 1+ dorsalis pedis and posterior tibial pulses present b/l. ROM intact. Neurologic: No focal sensory or motor deficits noted, alert and oriented to person, place and time, appropriate affect Skin: Warm, dry, no lesions or rashes noted Results Labs 03/31/24 05:29 03/31/24 05:29 Labs: Short CBC 03/29/24 03/30/24 Range/Units 11:00 05:00 WBC 8.2 7.7 (3.8-10.6) Thou/mm3 Hgb 11.3 L 10.7 L (13.5-16.0) g/dL Hct 34.0 L 32.4 L (41.0-53.0) % Plt Count 276 265 (140-440) Thou/mm3 BMP 03/29/24 03/30/24 11:00 05:00 Sodium 137 139 Potassium 4.0 3.6 Chloride 109 H 108 H Carbon Dioxide 22.0 24.2 BUN 31 H 29 H Creatinine 1.7 H 1.6 H Glucose 127 H 99 Calcium 9.4 9.7 Cardiac Enzymes 03/29/24 Range/Units 11:00 Troponin I < 0.020 (0.0-0.045) ng/mL Liver Function 03/29/24 Range/Units 11:00 Total Bilirubin 0.8 (0.3-1.2) mg/dL AST 25 (0-34) U/L ALT 28 (10-49) U/L Alkaline Phosphatase 88 (46-116) U/L Albumin 4.0 (3.4-4.8) gm/dL Quality Measures Quality Measures none Advance care planning discussed with:: patient Medications Home Medications and Allergies Home Medications ?Medication ?Instructions ?Recorded ?Confirmed ?Type atorvastatin 40 mg tablet (Lipitor) 40 mg PO DAILY ##0 04/18/12 03/30/24 History nebivolol 10 mg tablet (Bystolic) 10 mg PO DAILY ##0 04/18/12 03/30/24 History benazepril 40 mg tablet (Lotensin) 40 mg PO QDAY #0 tabs 11/09/14 03/30/24 History aspirin 81 mg tablet,delayed 81 mg PO QDAY 08/17/20 03/30/24 History release glipizide 5 mg-metformin 500 mg 1 tab PO BID 08/17/20 03/30/24 History tablet amlodipine 10 mg tablet 10 mg PO QDAY 01/05/21 03/30/24 History cilostazol 50 mg tablet 100 mg PO BID 01/05/21 03/30/24 History ferrous sulfate 325 mg (65 mg 65 mg PO QDAY 01/05/21 03/30/24 History iron) tablet (iron) insulin glargine 100 unit/mL (3 10 unit subcut QDAY 01/05/21 03/30/24 History mL) subcutaneous pen (Lantus Solostar U-100 Insulin) multivitamin 2 tab PO QDAY 01/05/21 03/30/24 History hydralazine 50 mg tablet 50 mg PO TID 03/30/24 03/30/24 History Allergies Allergy/AdvReac Type Severity Reaction Status Date / Time No Known Allergies Allergy Verified 01/06/21 11:48 Visit Medications Acetaminophen (Acetaminophen 325 Mg Tablet) 650 mg PO Q6H PRN PRN Reason: Fever >100.4 Stop: 04/28/24 17:53 Acetaminophen (Acetaminophen 325 Mg Tablet) 650 mg PO Q6H PRN PRN Reason: PAIN SCALE 1-3 (mild Stop: 04/28/24 17:53 Amlodipine Besylate (Amlodipine Besylate 5 Mg Tablet) 10 mg PO QDAY DARRYL Stop: 04/28/24 18:04 Last Admin: 03/30/24 09:23 Dose: 10 mg Aspirin (Aspirin Ec 81 Mg Tabec) 81 mg PO DAILY DARRYL Stop: 04/28/24 18:59 Last Admin: 03/30/24 09:24 Dose: 81 mg Atorvastatin Calcium (Atorvastatin Calcium 20 Mg Tablet) 40 mg PO HS [facility] Stop: 04/28/24 20:59 Last Admin: 03/29/24 20:30 Dose: 40 mg Cilostazol (Cilostazol 50 Mg Tablet) 100 mg PO DAILY DARRYL Stop: 04/29/24 08:59 Last Admin: 03/30/24 09:23 Dose: 100 mg Dextrose (Dextrose 50%-Water Inj 50 Ml Syringe) 25 ml IV Q15MIN PRN PRN Reason: BG 50-70 responsive npo pt Stop: 04/28/24 18:34 Dextrose (Dextrose 50%-Water Inj 50 Ml Syringe) 50 ml IV Q15MIN PRN PRN Reason: BG <50 OR BG <70 & pt unresponsive Stop: 04/28/24 18:34 Furosemide (Furosemide Inj 10 Mg/Ml 4ml Vial) 40 mg IVP QDAY DARRYL Stop: 04/29/24 08:59 Last Admin: 03/30/24 09:24 Dose: 40 mg Glucagon (Glucagon Inj 1 Mg Vial) 1 mg IM Q15MIN PRN PRN Reason: BG <70, and no IV access Heparin Sodium (Porcine) (Heparin Sod Inj 5000 Unit/Ml Vial) 5,000 unit SC BID DARRYL Stop: 04/12/24 20:59 Last Admin: 03/30/24 09:26 Dose: 5,000 unit Hydralazine HCl (Hydralazine Hcl 25 Mg Tablet) 50 mg PO TID DARRYL Stop: 04/29/24 08:14 Insulin Glargine (Insulin Glargine (Lantus) 5 Unit/0.05 Ml (Per 5 Units)) 5 unit SC DAILY [facility] Stop: 04/29/24 08:59 Last Admin: 03/30/24 09:25 Dose: 5 unit Insulin Human Lispro (Insulin Lispro (Admelog) 1 Unit/0.01 Ml Unit) 0 unit SC ACHS [facility]; Protocol Stop: 04/28/24 20:59 Last Admin: 03/30/24 07:40 Dose: Not Given Nebivolol (Nebivolol Hcl 5 Mg Tablet (Non-Formulary)) 10 mg PO DAILY DARRYL Stop: 04/28/24 18:14 Last Admin: 03/29/24 20:30 Dose: 10 mg Ondansetron HCl (Ondansetron Inj 2 Mg/Ml Inj 2 Ml) 4 mg IV Q6H PRN; Protocol PRN Reason: NAUSEA OR VOMITING Stop: 04/28/24 17:53 Pantoprazole Sodium (Pantoprazole 40 Mg Tablet) 40 mg PO QDAY DARRYL Stop: 04/29/24 08:59 Last Admin: 03/30/24 09:24 Dose: 40 mg Discontinued Medications Furosemide (Furosemide Inj 10 Mg/Ml Vial 2 Ml) 20 mg IVP X1 ONE Stop: 03/29/24 12:00 Last Admin: 03/29/24 13:01 Dose: 20 mg Furosemide (Furosemide Inj 10 Mg/Ml 4ml Vial) 20 mg IVP X1 ONE Stop: 03/29/24 18:00 Last Admin: 03/29/24 20:45 Dose: 20 mg Hydralazine HCl (Hydralazine Hcl 25 Mg Tablet) 50 mg PO TID [facility] Stop: 04/28/24 18:14 Last Admin: 03/29/24 20:46 Dose: Not Given Hydralazine HCl (Hydralazine Hcl 25 Mg Tablet) 50 mg PO BID DARRYL Stop: 04/28/24 20:59 Last Admin: 03/29/24 20:29 Dose: 50 mg Potassium Chloride (Potassium Chloride 20 Meq Tabcr) 40 meq PO X1 ONE Stop: 03/30/24 07:10 Last Admin: 03/30/24 09:24 Dose: 40 meq Assessment & Plan Plan An 84-year-old hard of hearing male who ambulates via walker with history of CAD status post CABG 2009 (not oxygen dependent at home ), hypertension, hyperlipidemia, type 2 diabetes mellitus, and PAD presented to the ED of [facility] on 03/29/2024 for chief complaint of shortness of breath. Patient states that he was in his usual state of health until Friday03/26/2024 on his daily 3/4 mile walk.Exertional shortness of breath noted on his daily walk. Patient denied any chest pain, palpitations, nausea, vomiting, blurry vision, dizziness, abdominal pain, jaw pain, shoulder discomfort, diaphoresis, constipation or diarrhea. He stated when he was ready to put his walker into his truck, he did not had the strength to do it and he resumed being short of breath. 03/21/2024, he became extremely concerned and voiced this to his . His called the emergency department. The ambulance brought him into the ED. He is followed outpatient by Dr. Roy. Patient was admitted for management of hypertensive urgency and AHRF 2/2 volume overloaded state likely 2/2 CHF. Cardiology was consulted for HF exacerbation and atriall fibrillation. #HFpEF, EF 65% in 2020 Secondary to Hypertension Patient presented with dyspnea on ED presentation, requiring oxygen via nasal cannula. Patient was found to have 1+ pitting edema and diminished breath sounds on bilateral lung lobes. Clinically presents decompensated with pitting edema and pleural effusions on lower lungs b/l. Suspicion of possible ischemic cardiomyopathy leading to current exacerbated state, but not likely in absence of chest pain. CTA chest: Negative for PE, Moderate right pleural effusion mild left pleural effusion Thoracic aortic calcification,Main pulmonary artery segment is enlarged, 41 mm- indicating pulmonary hypertension, Significant vascular congestion, Dilated bronchi in the lower lobes, Mild septal edema in the lower lung zones EKG showed A-fib, HR of 61. CXr showed Mild to moderate CHF, Mild to moderate enlargement cardiac contour, CABG, Prominent vascular congestion with joaquin B lines, Perihilar basilar edema with small to moderate bilateral pleural effusions, Increased AP dimension chest. Echo 2020 showed EF 65%. BNP of 403. -Lasix 40 mg IV daily changed to Bumex 2mg daily -Bumex 1mg x1 -Maintain K>4 and Mg >2. -Fluid restriction 1.5 L/day, daily weights, strict I/O -Echo pending #New onset Atrial fibrillation Patient was noted to have a. fib on EKG and tele monitor. EKG showed A-fib, HR of 61. CHADSVasc of 5. HASBLED score of 2, with moderate risk for bleeding. Considering patient has Cr>1.5 and age >80, he meets 2 criteria for lower dose of Eliquis -Amiodarone 200mg BID -Eliquis 2.5mg BID #Hypertensive urgency, improving On presentation, his blood pressure was elevated with tachypnea. BP is now better controlled on current management. May hold any SHAUN and ARBS in setting of recent CTA with contrast and CKD. -Amlodipine 10 mg p.o. daily,Hydralazine 50 mg p.o. twice daily, and Nebivolol 10 mg p.o. daily #Bilateral pleural effusions #Pulmonary hypertension Patient was found to have bilateral pleural effusions on imaging. He also endorsed shortness of breath. CTA showed Moderate right pleural effusion, mild left pleural effusion. -Consider to initiate Bosentan. -If worsening pleural effusions, may require thoracenthesis #Coronary artery disease status post CABG Patient has history of CABG in 2009. He is currently on appropriate treatment. -Aspirin 81 mg p.o. daily and Atorvastatin 40 mg p.o. at bedtime #Chronic kidney disease, stage 3B #8 mm left thyroid nodule,12 mm right thyroid nodule Incidental findings on imaging #Peripheral artery disease #Type 2 diabetes mellitus #HLD -management per primary team Discussed case with my attending Dr. Roy. Thank you for allowing cardiology to contribute to this patient's case. Ibeth Wilson, PGY-2
[2024-03-30] MEDS: NEBIVOLOL HCL 5 MG TABLET (NON-FORMULARY) 10 MG PO (09:33)
--- NOTE | 2024-03-30 10:24 | PC.NURSE ---
Nebivolol administered to patient this AM on Dr. Lopez's orders after made aware of SB. Pt currently sustaining HR in 50's with a low of 47 bpm; Dr. Irizarry made aware, no new orders at this time. Pt resting in bed appears to be asymptomatic. Will continue to monitor patient.
[2024-03-30] MEDS: INSULIN LISPRO (AdmeLOG) 1 UNIT/0.01 ML UNIT SC ×2 (11:58→21:32)
[2024-03-30] MEDS: BUMETANIDE INJ 0.25 MG/ML VIAL 4 ML 1 MG IVP (12:01)
--- NOTE | 2024-03-30 12:43 | ESPR_ITS ---
<Statement entered by Scottie Alston MD - 04/03/24 08:40> Attending attestation: I reviewed above note and agree with findings and plans. I have also personally examined the patient with medicine team and went over assessment and plan with medical team including record label internship and resident physician. <Statement entered by Mercedez Irizarry MD - 03/30/24 14:18> Patient seen and examined at bedside. No acute overnight event. Patient is on room air saturating well, patient is not complaining of shortness of breath, chest pain. Troponin down trended, per cardiology patient will be started on Bumex twice daily will continue closely monitor urine output. Also CT chest revealed bilateral small to mild pleural effusion, however patient is on room air, no need for thoracentesis at this point. Will continue current management. Pending echo. Will follow-up with Dr. Roy recommendations. Patient care was discussed with attending physician Dr. Alecia Irizarry MD PGY-2 Documentation for date of: 03/30/24 Subjective Subjective Interval history: Dominik Willard is an 84-year-old male with a past medical history of CAD status post CABG 2009, hypertension, hyperlipidemia, type 2 diabetes mellitus, and PAD who presents with tachypnea and LINTON for 4 days. Patient states that he was in his usual state of health until Friday, on his daily 3/4 mile walk but experienced tachypnea and LINTON, which is unusual for him. Symptoms progressed and prompted him to visit the ED. He has never had to come to the ED for similar symptoms in the past, denies chest discomfort, denies lower extremity edema, and is not aware of a prior diagnosis of heart failure. He is followed outpatient by Dr. Roy. Otherwise, denies fever, chills, cough, abdominal pain, urinary symptoms, change in bowel movements. 03/30: No acute overnight events. Denies chest discomfort, shortness of breath, abdominal pain, nausea, vomiting. Patient has episodes of bradycardia dropping into the 30s usually when he is asleep or resting, but patient denies any episodes of lightheadedness or blurry vision. Exam Vital Signs Temp Pulse Resp BP Pulse Ox O2 Del Method O2 Flow Rate 98.2 F 67 20 142/93 H 98 Room Air 2 03/30/24 12:00 03/30/24 12:01 03/30/24 12:00 03/30/24 12:01 03/30/24 12:00 03/30/24 12:00 03/30/24 06:40 Narrative Exam General: AOx3, no acute distress, able to speak full sentences HEENT: NC/AT, mucous membranes moist, bilateral sclera anicteric Cardiovascular: Systolic murmur at left upper sternal border; S1/S2 present Pulmonary: clear to auscultation bilaterally, no rales/rhonchi/wheezes Abdominal: soft, non-tender, non-distended, no rebound/guarding, normal bowel sounds present Musculoskeletal: 1+ bilateral lower extremity edema; normal ROM Skin: warm and dry, intact, no rashes Neuro: CN II-XII intact, no focal deficits Objective Labs 03/30/24 05:00 03/30/24 05:00 Labs: Laboratory Results - last 24 hr 03/29/24 03/30/24 11:00 05:00 WBC 7.7 RBC 3.54 L Hgb 10.7 L Hct 32.4 L MCV 92 MCH 30.2 MCHC 33.0 RDW Std Deviation 51.7 H Plt Count 265 Neut % (Auto) 62 Lymph % (Auto) 21 [place] % (Auto) 10 Eos % (Auto) 5 Baso % (Auto) 1 Neut # (Auto) 4.8 Lymph # (Auto) 1.6 [place] # (Auto) 0.7 Eos # (Auto) 0.4 Baso # (Auto) 0.1 Immature Gran # (Auto) 0.03 H Absolute Nucleated RBC 0.00 Immature Gran % 0 Nucleated RBC % 0 Sodium 139 Potassium 3.6 Chloride 108 H Carbon Dioxide 24.2 Anion Gap 7 BUN 29 H Creatinine 1.6 H Estim Creat Clear Calc 37.0 L eGFR 42 L BUN/Creatinine Ratio [address] Glu mg/dL 134 H Hemoglobin A1c 6.3 H Calculated Osmolality 283 Calcium 9.7 Phosphorus 3.7 Magnesium 2.0 Triglycerides 79 Cholesterol 151 LDL Cholesterol, Calc 97 HDL Cholesterol 38 L Cholesterol/HDL Ratio 4.0 TSH 5.72 H Free T4 1.13 Quality Measures Quality Measures none Advance care planning discussed with:: patient and spouse Assessment & Plan Assessment Current Active Medications: Generic Name Dose Route Start Last Admin Trade Name Freq PRN Reason Stop Dose Admin Acetaminophen 650 mg 03/29/24 17:54 Acetaminophen 325 Mg Tablet PO 04/28/24 17:53 Q6H PRN Fever >100.4 Acetaminophen 650 mg 03/29/24 17:54 Acetaminophen 325 Mg Tablet PO 04/28/24 17:53 Q6H PRN PAIN SCALE 1-3 (mild Amlodipine Besylate 10 mg 03/29/24 18:05 03/30/24 09:23 Amlodipine Besylate 5 Mg Tablet PO 04/28/24 18:04 10 mg QDAY DARRYL Administration Aspirin 81 mg 03/29/24 19:00 03/30/24 09:24 Aspirin Ec 81 Mg Tabec PO 04/28/24 18:59 81 mg DAILY DARRYL Administration Atorvastatin Calcium 40 mg 03/29/24 21:00 03/29/24 20:30 Atorvastatin Calcium 20 Mg Tablet PO 04/28/24 20:59 40 mg HS DARRYL Administration Bumetanide 2 mg 03/31/24 09:00 Bumetanide Inj 0.25 Mg/Ml Vial 4 Ml IVP 04/30/24 08:59 QDAY DARRYL Cilostazol 100 mg 03/30/24 09:00 03/30/24 09:23 Cilostazol 50 Mg Tablet PO 04/29/24 08:59 100 mg DAILY DARRYL Administration Dextrose 25 ml 03/29/24 18:35 Dextrose 50%-Water Inj 50 Ml Syringe IV 04/28/24 18:34 Q15MIN PRN BG 50-70 responsive npo pt Dextrose 50 ml 03/29/24 18:35 Dextrose 50%-Water Inj 50 Ml Syringe IV 04/28/24 18:34 Q15MIN PRN BG <50 OR BG <70 & pt unresponsive Glucagon 1 mg 03/29/24 18:35 Glucagon Inj 1 Mg Vial IM Q15MIN PRN BG <70, and no IV access Heparin Sodium (Porcine) 5,000 unit 03/29/24 21:00 03/30/24 09:26 Heparin Sod Inj 5000 Unit/Ml Vial SC 04/12/24 20:59 5,000 unit BID DARRYL Administration Hydralazine HCl 50 mg 03/30/24 08:15 Hydralazine Hcl 25 Mg Tablet PO 04/29/24 08:14 TID DARRYL Insulin Glargine 5 unit 03/30/24 09:00 03/30/24 09:25 Insulin Glargine (Lantus) 5 Unit/0.05 Ml (Per 5 Units) SC 04/29/24 08:59 5 unit DAILY DARRYL Administration Insulin Human Lispro 0 unit 03/29/24 21:00 03/30/24 11:58 Insulin Lispro (Admelog) 1 Unit/0.01 Ml Unit SC 04/28/24 20:59 1 unit ACHS DARRYL Administration Protocol Nebivolol 10 mg 03/29/24 18:15 03/30/24 09:33 Nebivolol Hcl 5 Mg Tablet (Non-Formulary) PO 04/28/24 18:14 10 mg DAILY DARRYL Administration Ondansetron HCl 4 mg 03/29/24 17:54 Ondansetron Inj 2 Mg/Ml Inj 2 Ml IV 04/28/24 17:53 Q6H PRN NAUSEA OR VOMITING Protocol Pantoprazole Sodium 40 mg 03/30/24 09:00 03/30/24 09:24 Pantoprazole 40 Mg Tablet PO 04/29/24 08:59 40 mg QDAY DARRYL Administration Plan Dominik Willard is an 84-year-old male with a past medical history of CAD status post CABG 2009, hypertension, hyperlipidemia, type 2 diabetes mellitus, and PAD who presents with tachypnea and LINTON for 4 days. Patient states that he was in his usual state of health until Friday, on his daily 3/4 mile walk but experienced tachypnea and LINTON, which is unusual for him. Symptoms progressed and prompted him to visit the ED. He has never had to come to the ED for similar symptoms in the past, denies chest discomfort, denies lower extremity edema, and is not aware of a prior diagnosis of heart failure. He is followed outpatient by Dr. Roy. Admitted for work-up and evaluation for new onset heart failure. #Acute hypoxic respiratory failure #? Congestive heart failure LINTON for 4 days, BLE edema, BNP 400s, signs of vascular congestion on imaging. Given risk factors of HTN, T2DM, HLD, history of CABG and PAD, suspect ischemic cardiomyopathy causing HF. Echo 2020 showed EF 65%. Will obtain echo this admission. -Cardiology consulted, appreciate recommendations -Bumetanide 2 mg IV daily -Monitor K and Mg, replete as necessary -Fluid restriction 1.5 L/day, daily weights, strict I/O -Follow-up echo #Hypertensive urgency #Hypertension Will defer home benazepril given elevated creatinine and recent CTA. -Amlodipine 10 mg p.o. daily -Hydralazine 50 mg p.o. twice daily -Nebivolol 10 mg p.o. daily #Chronic kidney disease, stage 3B Creatinine 1.7, baseline 1.4-1.8. GFR 39. -Monitor creatinine #Type 2 diabetes mellitus A1c 6.3%. Will defer home glipizide-metformin. On home Lantus 5 mg twice daily. -Lantus 5 mg daily -Sensitive SSI lispro -Follow-up A1c #Coronary artery disease status post CABG -Aspirin 81 mg p.o. daily -Atorvastatin 40 mg p.o. at bedtime -Follow-up lipid panel #Peripheral artery disease -Cilostazol 100 mg p.o. daily Hospital management: Disposition: 2-3 hospital nights Fluids: Will defer in light of CHF exacerbation Diet: Low-sodium Lines: Peripheral DVT prophylaxis: Heparin SC twice daily GI prophylaxis: Pantoprazole 40 mg p.o. daily Bhagat: Not indicated CODE STATUS: full code ----- Plan discussed with attending physician Dr. Alecia Lopez MD PGY-1 Internal Medicine
--- NOTE | 2024-03-30 14:22 | PC.SS ---
Patient Dominik Willard is a 84 Year old male admitted for new onset CHF. SS was able to complete initial assessment at bedside. Patient appeared to be alert, oriented, and able to confirm all addresses, and contact information. Patient reports he lives at home with his son and . Patient reports he does utilize a Rollator walker to assist with ambulation. Patient reports his Manju Willard [phone] is his surrogate decision maker. Patient's choice of pharmacy is [facility]. Patients PCP is Mendez Whiting and Card Punching Machine Operator is Dr. Roy. At time of discharge patient will return home. Patients will provide transportation. Discharge plan: home Next of kin, Manju Willard PCP: Mendez Whiting
[2024-03-30] MEDS: hydrALAZINE HCL 25 MG TABLET 50 MG PO ×2 (14:27→21:18)
--- NOTE | 2024-03-30 14:46 | PC.SS ---
Rounding note; Pending Echo.
[2024-03-30] MEDS: ATORVASTATIN CALCIUM 20 MG TABLET 40 MG PO (21:18)
[2024-03-31] VITALS (15 sets, daily range): BP systolic 134–160; BP diastolic 58–79; PULSE 50–73; RESP 14–94; TEMP 36.2–37.1; O2SAT 94–98
[2024-03-31] MEDS: hydrALAZINE HCL 25 MG TABLET 50 MG PO ×2 (05:21→14:32)
[2024-03-31 06:01] LABS: Basophils # (Auto) 0.1 Thou/mm3 (0.0-0.2); Basophils % (Auto) 1 % (0-2.5); Eosinophils # (Auto) 0.4 Thou/mm3 (0.0-0.5); Eosinophils % (Auto) 5 % (0-10); Hematocrit 33.2 % (41.0-53.0); Hemoglobin 11.3 g/dL (13.5-16.0); Immature Granulocytes % (Auto) 1 % (0-0); Immature Granulocytes Auto 0.04 Thou/mm3 (0.00-0.00); Lymphocytes # (Auto) 1.2 Thou/mm3 (1.0-4.8); Lymphocytes % (Auto) 15 % (10-50); Mean Corpuscular Hemoglobin 30.7 pg (25.0-35.0); Mean Corpuscular Volume 90 fL (80-100); Monocytes # (Auto) 0.7 Thou/mm3 (0.0-0.8); Monocytes % (Auto) 9 % (0-12); Neutrophils # (Auto) 5.5 Thou/mm3 (1.8-7.7); Neutrophils % (Auto) 70 % (37-80); Nucleated Red Blood Cell % 0 /100 WBC (0); Platelet Count 233 Thou/mm3 (140-440); RDW Standard Deviation 50.9 fL (35.1-43.9); Red Blood Count 3.68 Miln/mm3 (4.50-5.90); White Blood Count 7.9 Thou/mm3 (3.8-10.6)
[2024-03-31 06:23] LABS: Anion Gap 9 (7-16); BUN/Creatinine Ratio 19 Ratio (12-20); Blood Urea Nitrogen 34 mg/dL (9-23); Calcium 9.8 mg/dL (8.3-10.6); Carbon Dioxide 25.3 mMol/L (20.0-31.0); Chloride 106 mMol/L (98-107); Creatinine (Component) 1.8 mg/dL (0.6-1.3); Estimated Creatinine Clearance 32.9 mL/min (>60); Glucose 107 mg/dL (74-106); Magnesium 1.9 mg/dL (1.6-2.6); Osmolality,Calculated 287 (275-295); Potassium 3.9 mMol/L (3.4-5.1); Sodium 140 mMol/L (136-145); eGFR 36 See Note
[2024-03-31] MEDS: NEBIVOLOL HCL 5 MG TABLET (NON-FORMULARY) 10 MG PO (08:33)
[2024-03-31] MEDS: amLODIPine BESYLATE 5 MG TABLET 10 MG PO (08:34)
[2024-03-31] MEDS: cilostazoL 50 MG TABLET 100 MG PO (08:34)
[2024-03-31] MEDS: MAGNESIUM OXIDE 400 MG TABLET PO (08:35)
[2024-03-31] MEDS: PANTOPRAZOLE 40 MG TABLET PO (08:35)
[2024-03-31] MEDS: ASPIRIN EC 81 MG TABEC PO (08:35)
[2024-03-31] MEDS: POTASSIUM CHLORIDE 20 mEq TABCR PO (08:35)
[2024-03-31] MEDS: INSULIN GLARGINE (Lantus) 5 UNIT/0.05 ML (PER 5 UNITS) SC (08:36)
[2024-03-31] MEDS: HEPARIN SOD INJ 5000 UNIT/ML VIAL SC (08:36)
[2024-03-31] MEDS: BUMETANIDE INJ 0.25 MG/ML VIAL 4 ML 2 MG IVP (08:36)
--- NOTE | 2024-03-31 08:38 | ESPR_ITS ---
<Statement entered by Alfie Roy MD - 04/01/24 20:20> I personally evaluated the patient cardiology rounds along with Dr. Ibeth Wilson, PGY 2 patient is doing clinically better now does not complain of any chest pain or shortness of breath shortness with improved diuresed well plan and treatment of the day discharge home tomorrow to have an outpatient follow-up. I personally evaluated the patient with resident physician and spent more than 30 minutes going over all the questions and concerns. No further workup at this time we will discharge the patient home tomorrow to see me as an outpatient following discharge in 1 to 2 weeks Documentation for date of: 03/31/24 Subjective Subjective Interval history: Overnight patient was bradycardic in the mid 30s. However, his bradycardia was non-sustained. Patient is calm and was able to sleep comfortably at night. +JVD noted, but no crackles or rhonchi noted. Clinically, he presents euvolemic. Patient denies headache, fever, chills, chest pain, palpitation, shortness of breath, dizziness, nausea, vomiting, diarrhea, or constipation. He remains in atrial fibrillation, rate controlled at 66 currently. After 3 weeks we will consider cardiovert patient if he remains with irregular heart rate. Patient does not require any pacemaker. If syncope continues during the day, dropping to low 30s in the daytime, will later consider pacemaker. Will continue to monitor patient. Exam Vital Signs Temp Pulse Resp BP Pulse Ox O2 Del Method O2 Flow Rate 98.1 F 62 14 160/70 H 98 Nasal Cannula 1 03/31/24 04:00 03/31/24 06:40 03/31/24 06:40 03/31/24 05:21 03/31/24 06:40 03/31/24 04:00 03/31/24 04:00 Narrative Exam Constitutional: pleasant hard of hearing male, well-developed, well-nourished, in no acute distress, lying in bed. HEENT: NCAT, EOMI, moist mucous membranes, on room air Lung: CTAB, no wheezing, no rhonchi, no crackles. diminished breath sounds lower lobes bilaterally Heart: Irregular S1S2, no murmurs, gallops, or rubs Abdomen: Soft, non-distended, non-tender, ++bowel sounds Extremities: No cyanosis, clubbing, 1+ pitting edema of b/l legs, 1+ dorsalis pedis and posterior tibial pulses present b/l. Neurologic: No focal sensory or motor deficits noted, AAOx3. Skin: Warm, dry, no lesions or rashes noted Objective Labs 03/31/24 05:29 03/31/24 05:29 Labs: Laboratory Results - last 24 hr 03/31/24 05:29 WBC 7.9 RBC 3.68 L Hgb 11.3 L Hct 33.2 L MCV 90 MCH 30.7 MCHC 34.0 RDW Std Deviation 50.9 H Plt Count 233 D Neut % (Auto) 70 Lymph % (Auto) 15 [place] % (Auto) 9 Eos % (Auto) 5 Baso % (Auto) 1 Neut # (Auto) 5.5 Lymph # (Auto) 1.2 [place] # (Auto) 0.7 Eos # (Auto) 0.4 Baso # (Auto) 0.1 Immature Gran # (Auto) 0.04 H Absolute Nucleated RBC 0.00 Immature Gran % 1 H Nucleated RBC % 0 Sodium 140 Potassium 3.9 Chloride 106 Carbon Dioxide 25.3 Anion Gap 9 BUN 34 H Creatinine 1.8 H Estim Creat Clear Calc 32.9 L eGFR 36 L BUN/Creatinine Ratio 19 Glucose 107 H Calculated Osmolality 287 Calcium 9.8 Magnesium 1.9 Quality Measures Quality Measures none Advance care planning discussed with:: patient Assessment & Plan Assessment Current Active Medications: Generic Name Dose Route Start Last Admin Trade Name Freq PRN Reason Stop Dose Admin Acetaminophen 650 mg 03/29/24 17:54 Acetaminophen 325 Mg Tablet PO 04/28/24 17:53 Q6H PRN Fever >100.4 Acetaminophen 650 mg 03/29/24 17:54 Acetaminophen 325 Mg Tablet PO 04/28/24 17:53 Q6H PRN PAIN SCALE 1-3 (mild Amiodarone HCl 200 mg 03/31/24 09:00 Amiodarone Hcl 200 Mg Tablet PO 04/30/24 08:59 BID DARRYL Amlodipine Besylate 10 mg 03/29/24 18:05 03/30/24 09:23 Amlodipine Besylate 5 Mg Tablet PO 04/28/24 18:04 10 mg QDAY DARRYL Administration Apixaban 2.5 mg 03/31/24 09:00 Apixaban 2.5 Mg Tablet PO 04/30/24 08:59 BID DARRYL Aspirin 81 mg 03/29/24 19:00 03/30/24 09:24 Aspirin Ec 81 Mg Tabec PO 04/28/24 18:59 81 mg DAILY DARRYL Administration Atorvastatin Calcium 40 mg 03/29/24 21:00 03/30/24 21:18 Atorvastatin Calcium 20 Mg Tablet PO 04/28/24 20:59 40 mg HS DARRYL Administration Bumetanide 2 mg 03/31/24 09:00 Bumetanide Inj 0.25 Mg/Ml Vial 4 Ml IVP 04/30/24 08:59 QDAY DARRYL Cilostazol 100 mg 03/30/24 09:00 03/30/24 09:23 Cilostazol 50 Mg Tablet PO 04/29/24 08:59 100 mg DAILY DARRYL Administration Dextrose 25 ml 03/29/24 18:35 Dextrose 50%-Water Inj 50 Ml Syringe IV 04/28/24 18:34 Q15MIN PRN BG 50-70 responsive npo pt Dextrose 50 ml 03/29/24 18:35 Dextrose 50%-Water Inj 50 Ml Syringe IV 04/28/24 18:34 Q15MIN PRN BG <50 OR BG <70 & pt unresponsive Glucagon 1 mg 03/29/24 18:35 Glucagon Inj 1 Mg Vial IM Q15MIN PRN BG <70, and no IV access Heparin Sodium (Porcine) 5,000 unit 03/29/24 21:00 03/30/24 21:28 Heparin Sod Inj 5000 Unit/Ml Vial SC 04/12/24 20:59 5,000 unit BID DARRYL Administration Hydralazine HCl 50 mg 03/30/24 08:15 03/31/24 05:21 Hydralazine Hcl 25 Mg Tablet PO 04/29/24 08:14 50 mg TID DARRYL Administration Insulin Glargine 5 unit 03/30/24 09:00 03/30/24 09:25 Insulin Glargine (Lantus) 5 Unit/0.05 Ml (Per 5 Units) SC 04/29/24 08:59 5 unit DAILY DARRYL Administration Insulin Human Lispro 0 unit 03/29/24 21:00 03/30/24 21:32 Insulin Lispro (Admelog) 1 Unit/0.01 Ml Unit SC 04/28/24 20:59 1 unit ACHS DARRYL Administration Protocol Nebivolol 10 mg 03/29/24 18:15 03/30/24 09:33 Nebivolol Hcl 5 Mg Tablet (Non-Formulary) PO 04/28/24 18:14 10 mg DAILY DARRYL Administration Ondansetron HCl 4 mg 03/29/24 17:54 Ondansetron Inj 2 Mg/Ml Inj 2 Ml IV 04/28/24 17:53 Q6H PRN NAUSEA OR VOMITING Protocol Pantoprazole Sodium 40 mg 03/30/24 09:00 03/30/24 09:24 Pantoprazole 40 Mg Tablet PO 04/29/24 08:59 40 mg QDAY DARRYL Administration Plan An 84-year-old hard of hearing male who ambulates via walker with history of CAD status post CABG 2009 (not oxygen dependent at home ), hypertension, hyperlipidemia, type 2 diabetes mellitus, and PAD presented to the ED of [facility] on 03/29/2024 for chief complaint of shortness of breath. Patient states that he was in his usual state of health until Friday03/26/2024 on his daily 3/4 mile walk.Exertional shortness of breath noted on his daily walk. Patient denied any chest pain, palpitations, nausea, vomiting, blurry vision, dizziness, abdominal pain, jaw pain, shoulder discomfort, diaphoresis, constipation or diarrhea. He stated when he was ready to put his walker into his truck, he did not had the strength to do it and he resumed being short of breath. 03/21/2024, he became extremely concerned and voiced this to his . His called the emergency department. The ambulance brought him into the ED. He is followed outpatient by Dr. Roy. Patient was admitted for management of hypertensive urgency and AHRF 2/2 volume overloaded state likely 2/2 CHF. Cardiology was consulted for HF exacerbation and atrial fibrillation. #Acutely decompensated HFpEF, EF 65%- improving Multifactorial 2/2 Hypertension, Atrial fibrillation, left ventricular hypertrophy, and multiple medications Patient presented with dyspnea prior to and on ED presentation, requiring oxygen via nasal cannula. Patient was found to have 1+ pitting edema, now resolved. Diminished breath sounds on bilateral lung lobes persists. Clinically presented with pitting edema. Pleural effusions on lower lungs b/l noted. Currently, he is euvolemic with JVD of 5cm. Patient's HFpEF is likely secondary to longstanding history of hypertension and new onset atrial fibrillation leading to his heart failure, now improving. Less likely 2/2 to ischemic cardiomyopathy as patient did not complain of any chest pain or palpitations. CTA chest: Negative for PE, Moderate right pleural effusion mild left pleural effusion Thoracic aortic calcification,Main pulmonary artery segment is enlarged, 41 mm- indicating pulmonary hypertension, Significant vascular congestion, Dilated bronchi in the lower lobes, Mild septal edema in the lower lung zones EKG showed A-fib, HR of 61. CXr showed Mild to moderate CHF, Mild to moderate enlargement cardiac contour, CABG, Prominent vascular congestion with joaquin B lines, Perihilar basilar edema with small to moderate bilateral pleural effusions, Increased AP dimension chest. Echo 2020 showed EF 65%. Echo on 03/2024 showed: Normal LV size and function. 60-65% Mild RV dilatation. Normal RV function. Severe LA dilatation. Mild RA dilatation Mild MAC. Mild MR, Mild TR. Trace AI, PI. BNP of 403. -Bumex 2mg daily -Will recommend to discharge on Bumex 1mg orally daily as maintenance diuresis to prevent rehospitalization for CHF exacerbation -Maintain K>4 and Mg >2. -Fluid restriction 1.5 L/day, daily weights, strict I/O -Treat the underlying causes: HTN and atrial fibrillation patient's underlying causes are relief -Once patient's underlying causes are relieved, patient will continue to see improvement in symptoms. #New onset Atrial fibrillation Patient was noted to have a. fib on EKG and tele monitor. EKG showed A-fib, HR of 61. He remains in atrial fibrillation, rate controlled at 66 currently. CHADSVasc of 5. HASBLED score of 2, with moderate risk for bleeding. Considering patient has Cr>1.5 and age >80, he meets 2 criteria for lower dose of Eliquis Plan: -Recommend both anticoagulation and rhythm control with both amiodarone 200mg BID and Eliquis 2.5mg BID -After 3 weeks if rhythrhythm remains irregirregular, will consider cardioversion. #Nonsustained bradycardia- resolved Patient experienced nonsustained bradycardia overnight. Bradycardia dropped to 36 but soon self-resolved. Bradycardia is not unusual during nocturnal rest. Plan: -Patient does not require any pacemaker. If syncope continues during the day, dropping to low 30s in the daytime, will later consider pacemaker. #Hypertensive urgency, improving On presentation, his blood pressure was elevated with tachypnea. BP is now better controlled on current management. May hold any SHAUN and ARBS in setting of recent CTA with contrast and CKD. -Amlodipine 10 mg p.o. daily,Hydralazine 50 mg p.o. twice daily, and Nebivolol 10 mg p.o. daily #Bilateral pleural effusions #Pulmonary hypertension Patient was found to have bilateral pleural effusions on imaging. He also endorsed shortness of breath, which is improving on oxygen. CTA showed Moderate right pleural effusion, mild left pleural effusions. -May require thoracenthesis of left lung but no thoracenthesis indicated for right lung -Continue with diuresis #Coronary artery disease status post CABG Patient has history of CABG in 2009. He is currently on appropriate treatment. -Aspirin 81 mg p.o. daily and Atorvastatin 40 mg p.o. at bedtime #Chronic kidney disease, stage 3B #8 mm left thyroid nodule,12 mm right thyroid nodule Incidental findings on imaging #Peripheral artery disease #Type 2 diabetes mellitus #HLD -management per primary team Discussed case with my attending Dr. Roy. Thank you for allowing cardiology to contribute to this patient's case. Ibeth Wilson, PGY-2
[2024-03-31] MEDS: APIXABAN 2.5 MG TABLET PO ×2 (09:25→21:40)
[2024-03-31] MEDS: AMIODARONE HCL 200 MG TABLET PO ×2 (09:26→21:40)
--- NOTE | 2024-03-31 11:26 | ESPR_ITS ---
<Statement entered by Scottie Alston MD - 04/03/24 08:41> Attending attestation: I reviewed above note and agree with findings and plans. I have also personally examined the patient with medicine team and went over assessment and plan with medical team including clinical nursing intern and resident physician. <Statement entered by Mercedez Irizarry MD - 03/31/24 15:31> Patient seen and examined at bedside. Yesterday patient developed new onset of A-fib and per cardiology started on amiodarone 200 twice daily along with Eliquis 2.5. Echo was done which revealed EF of 65%. PT evaluated the patient, patient is hemodynamically stable, will continue monitor for 1 more day anticipate discharge in next 24 hours. Patient care was discussed with attending physician Dr. Alecia Irizarry MD PGY-2 Documentation for date of: 03/31/24 Subjective Subjective Interval history: Dominik Willard is an 84-year-old male with a past medical history of CAD status post CABG 2009, hypertension, hyperlipidemia, type 2 diabetes mellitus, and PAD who presents with tachypnea and LINTON for 4 days. Patient states that he was in his usual state of health until Friday, on his daily 3/4 mile walk but experienced tachypnea and LINTON, which is unusual for him. Symptoms progressed and prompted him to visit the ED. He has never had to come to the ED for similar symptoms in the past, denies chest discomfort, denies lower extremity edema, and is not aware of a prior diagnosis of heart failure. He is followed outpatient by Dr. Roy. Otherwise, denies fever, chills, cough, abdominal pain, urinary symptoms, change in bowel movements. 03/30: No acute overnight events. Denies chest discomfort, shortness of breath, abdominal pain, nausea, vomiting. Patient has episodes of bradycardia dropping into the 30s usually when he is asleep or resting, but patient denies any episodes of lightheadedness or blurry vision. 10:30: No acute overnight events. Denies chest discomfort, shortness of breath, abdominal pain, nausea, vomiting. Noted to have new onset atrial fibrillation and so was started on eliquis 2.5 mg PO BID and amiodarone 200 mg PO BID. Given that these were started here in hospital, cardiology would like to monitor patient for one more day. Exam Vital Signs Temp Pulse Resp BP Pulse Ox O2 Del Method O2 Flow Rate 97.1 F 62 14 157/58 H 96 Room Air 1 03/31/24 08:00 03/31/24 09:26 03/31/24 08:00 03/31/24 09:26 03/31/24 08:00 03/31/24 08:00 03/31/24 04:00 Narrative Exam General: AOx3, no acute distress, able to speak full sentences HEENT: NC/AT, mucous membranes moist, bilateral sclera anicteric Cardiovascular: Systolic murmur at left upper sternal border; S1/S2 present Pulmonary: clear to auscultation bilaterally, no rales/rhonchi/wheezes Abdominal: soft, non-tender, non-distended, no rebound/guarding, normal bowel sounds present Musculoskeletal: 1+ bilateral lower extremity edema; normal ROM Skin: warm and dry, intact, no rashes Neuro: CN II-XII intact, no focal deficits Objective Labs 03/31/24 05:29 03/31/24 05:29 Labs: Laboratory Results - last 24 hr 03/31/24 05:29 WBC 7.9 RBC 3.68 L Hgb 11.3 L Hct 33.2 L MCV 90 MCH 30.7 MCHC 34.0 RDW Std Deviation 50.9 H Plt Count 233 D Neut % (Auto) 70 Lymph % (Auto) 15 [place] % (Auto) 9 Eos % (Auto) 5 Baso % (Auto) 1 Neut # (Auto) 5.5 Lymph # (Auto) 1.2 [place] # (Auto) 0.7 Eos # (Auto) 0.4 Baso # (Auto) 0.1 Immature Gran # (Auto) 0.04 H Absolute Nucleated RBC 0.00 Immature Gran % 1 H Nucleated RBC % 0 Sodium 140 Potassium 3.9 Chloride 106 Carbon Dioxide 25.3 Anion Gap 9 BUN 34 H Creatinine 1.8 H Estim Creat Clear Calc 32.9 L eGFR 36 L BUN/Creatinine Ratio 19 Glucose 107 H Calculated Osmolality 287 Calcium 9.8 Magnesium 1.9 Quality Measures Quality Measures none Advance care planning discussed with:: patient and spouse Assessment & Plan Assessment Current Active Medications: Generic Name Dose Route Start Last Admin Trade Name Freq PRN Reason Stop Dose Admin Acetaminophen 650 mg 03/29/24 17:54 Acetaminophen 325 Mg Tablet PO 04/28/24 17:53 Q6H PRN Fever >100.4 Acetaminophen 650 mg 03/29/24 17:54 Acetaminophen 325 Mg Tablet PO 04/28/24 17:53 Q6H PRN PAIN SCALE 1-3 (mild Amiodarone HCl 200 mg 03/31/24 09:00 03/31/24 09:26 Amiodarone Hcl 200 Mg Tablet PO 04/30/24 08:59 200 mg BID DARRYL Administration Amlodipine Besylate 10 mg 03/29/24 18:05 03/31/24 08:34 Amlodipine Besylate 5 Mg Tablet PO 04/28/24 18:04 10 mg QDAY DARRYL Administration Apixaban 2.5 mg 03/31/24 09:00 03/31/24 09:25 Apixaban 2.5 Mg Tablet PO 04/30/24 08:59 2.5 mg BID DARRYL Administration Aspirin 81 mg 03/29/24 19:00 03/31/24 08:35 Aspirin Ec 81 Mg Tabec PO 04/28/24 18:59 81 mg DAILY DARRYL Administration Atorvastatin Calcium 40 mg 03/29/24 21:00 03/30/24 21:18 Atorvastatin Calcium 20 Mg Tablet PO 04/28/24 20:59 40 mg HS DARRYL Administration Bumetanide 2 mg 03/31/24 09:00 03/31/24 08:36 Bumetanide Inj 0.25 Mg/Ml Vial 4 Ml IVP 04/30/24 08:59 2 mg QDAY DARRYL Administration Cilostazol 100 mg 03/30/24 09:00 03/31/24 08:34 Cilostazol 50 Mg Tablet PO 04/29/24 08:59 100 mg DAILY DARRYL Administration Dextrose 25 ml 03/29/24 18:35 Dextrose 50%-Water Inj 50 Ml Syringe IV 04/28/24 18:34 Q15MIN PRN BG 50-70 responsive npo pt Dextrose 50 ml 03/29/24 18:35 Dextrose 50%-Water Inj 50 Ml Syringe IV 04/28/24 18:34 Q15MIN PRN BG <50 OR BG <70 & pt unresponsive Glucagon 1 mg 03/29/24 18:35 Glucagon Inj 1 Mg Vial IM Q15MIN PRN BG <70, and no IV access Hydralazine HCl 50 mg 03/30/24 08:15 03/31/24 05:21 Hydralazine Hcl 25 Mg Tablet PO 04/29/24 08:14 50 mg TID DARRYL Administration Insulin Glargine 5 unit 03/30/24 09:00 03/31/24 08:36 Insulin Glargine (Lantus) 5 Unit/0.05 Ml (Per 5 Units) SC 04/29/24 08:59 5 unit DAILY DARRYL Administration Insulin Human Lispro 0 unit 03/29/24 21:00 03/31/24 07:30 Insulin Lispro (Admelog) 1 Unit/0.01 Ml Unit SC 04/28/24 20:59 Not Given ACHS DARRYL Protocol Nebivolol 10 mg 03/29/24 18:15 03/31/24 08:33 Nebivolol Hcl 5 Mg Tablet (Non-Formulary) PO 04/28/24 18:14 10 mg DAILY DARRYL Administration Ondansetron HCl 4 mg 03/29/24 17:54 Ondansetron Inj 2 Mg/Ml Inj 2 Ml IV 04/28/24 17:53 Q6H PRN NAUSEA OR VOMITING Protocol Pantoprazole Sodium 40 mg 03/30/24 09:00 03/31/24 08:35 Pantoprazole 40 Mg Tablet PO 04/29/24 08:59 40 mg QDAY DARRYL Administration Plan Dominik Willard is an 84-year-old male with a past medical history of CAD status post CABG 2009, hypertension, hyperlipidemia, type 2 diabetes mellitus, and PAD who presents with tachypnea and LINTON for 4 days. Patient states that he was in his usual state of health until Friday, on his daily 3/4 mile walk but experienced tachypnea and LINTON, which is unusual for him. Symptoms progressed and prompted him to visit the ED. He has never had to come to the ED for similar symptoms in the past, denies chest discomfort, denies lower extremity edema, and is not aware of a prior diagnosis of heart failure. He is followed outpatient by Dr. Roy. Admitted for work-up and evaluation for new onset heart failure. #Acute hypoxic respiratory failure #? Congestive heart failure LINTON for 4 days, BLE edema, BNP 400s, signs of vascular congestion on imaging. Given risk factors of HTN, T2DM, HLD, history of CABG and PAD, suspect ischemic cardiomyopathy causing HF. Echo 03/29: EF 60-65%, severe LA dilatation. -Cardiology consulted, appreciate recommendations -Bumetanide 2 mg IV daily -Monitor K and Mg, replete as necessary -Fluid restriction 1.5 L/day, daily weights, strict I/O #New onset atrial fibrillation -Amiodarone 200 mg p.o. twice daily -Apixaban 2.5 mg p.o. twice daily #Hypertensive urgency #Hypertension Will defer home benazepril given elevated creatinine and recent CTA. -Amlodipine 10 mg p.o. daily -Hydralazine 50 mg p.o. twice daily -Nebivolol 10 mg p.o. daily #Chronic kidney disease, stage 3B Creatinine 1.7, baseline 1.4-1.8. GFR 39. -Monitor creatinine #Type 2 diabetes mellitus A1c 6.3%. Will defer home glipizide-metformin. On home Lantus 5 mg twice daily. -Lantus 5 mg daily -Sensitive SSI lispro -Follow-up A1c #Coronary artery disease status post CABG -Aspirin 81 mg p.o. daily -Atorvastatin 40 mg p.o. at bedtime -Follow-up lipid panel #Peripheral artery disease -Cilostazol 100 mg p.o. daily Hospital management: Disposition: 1 more hospital 9 Fluids: Will defer in light of CHF exacerbation Diet: Low-sodium Lines: Peripheral DVT prophylaxis: Eliquis GI prophylaxis: Pantoprazole 40 mg p.o. daily Bhagat: Not indicated CODE STATUS: full code ----- Plan discussed with attending physician Dr. Alecia Lpoez MD PGY-1 Internal Medicine
[2024-03-31] MEDS: INSULIN LISPRO (AdmeLOG) 1 UNIT/0.01 ML UNIT SC ×2 (11:47→21:41)
--- NOTE | 2024-03-31 12:06 | PC.PT ---
Received a PT referral. Based on ED Nursing notes, patient is ambulating, RN ANESTHESIOLOGY confirmed patient is I with ambulation. Informed Dr. Lopez. Will cancel PT evaluation.
[2024-03-31] MEDS: ATORVASTATIN CALCIUM 20 MG TABLET 40 MG PO (21:40)
[2024-04-01] VITALS (15 sets, daily range): BP systolic 130–160; BP diastolic 59–72; PULSE 45–82; RESP 15–95; TEMP 36.2–36.6; O2SAT 95–98; BMI 25.9
[2024-04-01] MEDS: hydrALAZINE HCL 25 MG TABLET 50 MG PO ×3 (05:49→21:34)
[2024-04-01 06:07] LABS: Basophils # (Auto) 0.1 Thou/mm3 (0.0-0.2); Basophils % (Auto) 1 % (0-2.5); Eosinophils # (Auto) 0.4 Thou/mm3 (0.0-0.5); Eosinophils % (Auto) 6 % (0-10); Hematocrit 31.3 % (41.0-53.0); Hemoglobin 10.6 g/dL (13.5-16.0); Immature Granulocytes % (Auto) 1 % (0-0); Immature Granulocytes Auto 0.04 Thou/mm3 (0.00-0.00); Lymphocytes # (Auto) 1.2 Thou/mm3 (1.0-4.8); Lymphocytes % (Auto) 17 % (10-50); Mean Corpuscular HGB Conc 33.9 g/dl (31.0-37.0); Mean Corpuscular Hemoglobin 30.3 pg (25.0-35.0); Mean Corpuscular Volume 89 fL (80-100); Monocytes # (Auto) 0.8 Thou/mm3 (0.0-0.8); Monocytes % (Auto) 11 % (0-12); Neutrophils # (Auto) 4.7 Thou/mm3 (1.8-7.7); Neutrophils % (Auto) 65 % (37-80); Nucleated Red Blood Cell % 0 /100 WBC (0); Platelet Count 276 Thou/mm3 (140-440); RDW Standard Deviation 49.1 fL (35.1-43.9); White Blood Count 7.1 Thou/mm3 (3.8-10.6)
[2024-04-01 06:34] LABS: Anion Gap 7 (7-16); BUN/Creatinine Ratio 19 Ratio (12-20); Blood Urea Nitrogen 38 mg/dL (9-23); Calcium 9.4 mg/dL (8.3-10.6); Carbon Dioxide 25.3 mMol/L (20.0-31.0); Chloride 107 mMol/L (98-107); Estimated Creatinine Clearance 29.6 mL/min (>60); Glucose 114 mg/dL (74-106); Magnesium 1.8 mg/dL (1.6-2.6); Osmolality,Calculated 287 (275-295); Potassium 3.5 mMol/L (3.4-5.1); Sodium 139 mMol/L (136-145); eGFR 32 See Note
[2024-04-01] MEDS: INSULIN LISPRO (AdmeLOG) 1 UNIT/0.01 ML UNIT SC ×4 (07:35→21:28)
--- NOTE | 2024-04-01 09:34 | ESPR_ITS ---
<Statement entered by Alfie Roy MD - 04/01/24 20:22> I personally evaluated the patient overnight no problems but heart rate dropped to 30s asymptomatic no need for pacemaker implantation at this time patient does have atrial fibrillation rate controlled well during the daytime but if he continues have any symptoms or low to low 30 heart rate as an outpatient may consider pacemaker implantation at this time patient is asymptomatic heart failure symptoms improved discharged home on current medications evaluated the patient as an outpatient my office. I personally evaluated the patient along with resident physician agree with the treatment plan recommendations by Dr. Ibeth Wilson, PGY 2 Documentation for date of: 04/01/24 Subjective Subjective Interval history: Overnight patient was bradycardic at 34-35.However, it was nocturnal during his sleep. Today, patient is normotensive and HR controlled in the 70s. Patient denies feeling faint, dizzy or generalized weakness. No edema of extremities. Clear on auscultation of b/l lung lobes. Patient denies headache, fever, chills, chest pain, palpitation, shortness of breath, nausea, vomiting, diarrhea, or constipation. Patient's creatinine increased to 2.0; therefore, primary medicine team stopped his Bumex for now. Will continue to closely monitor the patient. Exam Vital Signs Temp Pulse Resp BP Pulse Ox O2 Del Method O2 Flow Rate 97.5 F 73 19 130/60 95 Room Air 1 04/01/24 08:00 04/01/24 08:00 04/01/24 08:00 04/01/24 08:00 04/01/24 08:00 04/01/24 08:00 04/01/24 04:00 Narrative Exam Constitutional: well-developed, well-nourished, elderly male in no acute distress, lying in bed. HEENT: NCAT, EOMI, reactive round pupils b/l, patent nares b/l, moist mucous membranes, on 2L nasal cannula Lung: CTAB, no wheezing, no rhonchi, no crackles of lower lobes bilaterally Heart: Regular S1S2, no murmurs, gallops, or rubs Abdomen: Soft, non-distended, non-tender, ++bowel sounds. Extremities: No cyanosis, clubbing, no edema of b/l legs, 2+ dorsalis pedis pulses present b/l Neurologic: No focal sensory or motor deficits noted, AOx3, appropriate affect Skin: Warm, dry, no lesions or rashes noted Objective Labs 04/01/24 04:52 04/01/24 04:52 Labs: Laboratory Results - last 24 hr 04/01/24 04:52 WBC 7.1 RBC 3.50 L Hgb 10.6 L Hct 31.3 L MCV 89 MCH 30.3 MCHC 33.9 RDW Std Deviation 49.1 H Plt Count 276 D Neut % (Auto) 65 Lymph % (Auto) 17 [place] % (Auto) 11 Eos % (Auto) 6 Baso % (Auto) 1 Neut # (Auto) 4.7 Lymph # (Auto) 1.2 [place] # (Auto) 0.8 Eos # (Auto) 0.4 Baso # (Auto) 0.1 Immature Gran # (Auto) 0.04 H Absolute Nucleated RBC 0.00 Immature Gran % 1 H Nucleated RBC % 0 Sodium 139 Potassium 3.5 Chloride 107 Carbon Dioxide 25.3 Anion Gap 7 BUN 38 H Creatinine 2.0 H Estim Creat Clear Calc 29.6 L eGFR 32 L BUN/Creatinine Ratio 19 Glucose 114 H Calculated Osmolality 287 Calcium 9.4 Magnesium 1.8 Quality Measures Quality Measures none Advance care planning discussed with:: patient Assessment & Plan Assessment Current Active Medications: Generic Name Dose Route Start Last Admin Trade Name Freq PRN Reason Stop Dose Admin Acetaminophen 650 mg 03/29/24 17:54 Acetaminophen 325 Mg Tablet PO 04/28/24 17:53 Q6H PRN Fever >100.4 Acetaminophen 650 mg 03/29/24 17:54 Acetaminophen 325 Mg Tablet PO 04/28/24 17:53 Q6H PRN PAIN SCALE 1-3 (mild Amiodarone HCl 200 mg 03/31/24 09:00 03/31/24 21:40 Amiodarone Hcl 200 Mg Tablet PO 04/30/24 08:59 200 mg BID DARRYL Administration Amlodipine Besylate 10 mg 03/29/24 18:05 03/31/24 08:34 Amlodipine Besylate 5 Mg Tablet PO 04/28/24 18:04 10 mg QDAY DARRYL Administration Apixaban 2.5 mg 03/31/24 09:00 03/31/24 21:40 Apixaban 2.5 Mg Tablet PO 04/30/24 08:59 2.5 mg BID DARRYL Administration Aspirin 81 mg 03/29/24 19:00 03/31/24 08:35 Aspirin Ec 81 Mg Tabec PO 04/28/24 18:59 81 mg DAILY DARRYL Administration Atorvastatin Calcium 40 mg 03/29/24 21:00 03/31/24 21:40 Atorvastatin Calcium 20 Mg Tablet PO 04/28/24 20:59 40 mg HS DARRYL Administration Cilostazol 100 mg 03/30/24 09:00 03/31/24 08:34 Cilostazol 50 Mg Tablet PO 04/29/24 08:59 100 mg DAILY DARRYL Administration Dextrose 25 ml 03/29/24 18:35 Dextrose 50%-Water Inj 50 Ml Syringe IV 04/28/24 18:34 Q15MIN PRN BG 50-70 responsive npo pt Dextrose 50 ml 03/29/24 18:35 Dextrose 50%-Water Inj 50 Ml Syringe IV 04/28/24 18:34 Q15MIN PRN BG <50 OR BG <70 & pt unresponsive Glucagon 1 mg 03/29/24 18:35 Glucagon Inj 1 Mg Vial IM Q15MIN PRN BG <70, and no IV access Hydralazine HCl 50 mg 03/30/24 08:15 04/01/24 05:49 Hydralazine Hcl 25 Mg Tablet PO 04/29/24 08:14 50 mg TID DARRYL Administration Insulin Glargine 5 unit 03/30/24 09:00 03/31/24 08:36 Insulin Glargine (Lantus) 5 Unit/0.05 Ml (Per 5 Units) SC 04/29/24 08:59 5 unit DAILY DARRYL Administration Insulin Human Lispro 0 unit 03/29/24 21:00 04/01/24 07:35 Insulin Lispro (Admelog) 1 Unit/0.01 Ml Unit SC 04/28/24 20:59 1 unit ACHS DARRYL Administration Protocol Nebivolol 10 mg 03/29/24 18:15 03/31/24 08:33 Nebivolol Hcl 5 Mg Tablet (Non-Formulary) PO 04/28/24 18:14 10 mg DAILY DARRYL Administration Ondansetron HCl 4 mg 03/29/24 17:54 Ondansetron Inj 2 Mg/Ml Inj 2 Ml IV 04/28/24 17:53 Q6H PRN NAUSEA OR VOMITING Protocol Pantoprazole Sodium 40 mg 03/30/24 09:00 03/31/24 08:35 Pantoprazole 40 Mg Tablet PO 04/29/24 08:59 40 mg QDAY DARRYL Administration Plan An 84-year-old hard of hearing male who ambulates via walker with history of CAD status post CABG 2009 (not oxygen dependent at home ), hypertension, hyperlipidemia, type 2 diabetes mellitus, and PAD presented to the ED of [facility] on 03/29/2024 for chief complaint of shortness of breath. Patient states that he was in his usual state of health until Friday03/26/2024 on his daily 3/4 mile walk. Exertional shortness of breath noted on his daily walk. He is followed outpatient by Dr. Roy. Patient was admitted for management of hypertensive urgency and AHRF 2/2 volume overloaded state likely 2/2 CHF. Cardiology was consulted for HF exacerbation and atrial fibrillation. #HFpEF, EF 65%, Well compensated Multifactorial secondary to Hypertension, Atrial fibrillation, left ventricular hypertrophy, and multiple medications Patient presented with dyspnea prior to and on ED presentation, requiring oxygen via nasal cannula. Patient was found to have 1+ pitting edema, now resolved. He no longer has any diminished breath sounds. Currently, he is euvolemic. Patient's HFpEF is likely secondary to longstanding history of hypertension and new onset atrial fibrillation leading to his heart failure that is now well compensated. Less likely 2/2 to ischemic cardiomyopathy as patient did not complain of any chest pain or palpitations. CTA chest: Negative for PE, Moderate right pleural effusion mild left pleural effusion. Thoracic aortic calcification,Main pulmonary artery segment is enlarged, 41 mm- indicating pulmonary hypertension, Significant vascular congestion, Dilated bronchi in the lower lobes. EKG showed A-fib, HR of 61. CXR showed Mild to moderate CHF, Mild to moderate enlargement cardiac contour, CABG, Prominent vascular congestion with joaquin B lines, Perihilar basilar edema with small to moderate bilateral pleural effusions, Increased AP dimension chest. Echo 2020 showed EF 65%. Echo on 03/2024 showed: Normal LV size and function. 60-65% Mild RV dilatation. Normal RV function. Severe LA dilatation. Mild RA dilatation Mild MAC. Mild MR, Mild TR. Trace AI, PI. BNP of 403. -Bumex 2mg daily stopped by primary team in light of elevated Cr of 2.0. -Recommend to discharge on Bumex 1mg orally daily as maintenance diuresis to prevent rehospitalization for CHF exacerbation -Maintain K>4 and Mg >2. -Fluid restriction 1.5 L/day, daily weights, strict I/O -Treat the underlying causes: HTN and atrial fibrillation patient's underlying causes are relief #New onset Atrial fibrillation, rate controlled Patient was noted to have a. fib on EKG and tele monitor. EKG showed A-fib, HR of 61. He remains in atrial fibrillation, rate controlled at 73 currently. CHADSVasc of 5. HASBLED score of 2, with moderate risk for bleeding. Considering patient has Cr>1.5 and age >80, he meets 2 criteria for lower dose of Eliquis Plan: -Recommend both anticoagulation and rhythm control with both amiodarone 200mg BID and Eliquis 2.5mg BID -After 3 weeks if rhythrhythm remains irregular, will consider cardioversion. #Nonsustained bradycardia- resolved Patient experienced nonsustained bradycardia overnight. Bradycardia dropped to 34 but soon self-resolved. Bradycardia is not unusual during nocturnal rest. Plan: -If patient develops bradicardia in the daytime, will consider pacemaker in the future. -Patient does not require any pacemaker at this time. #Hypertenstion #Hypertensive urgency, resolved On presentation, his blood pressure was elevated with tachypnea. BP is now well controlled. -Amlodipine 10 mg p.o. daily,Hydralazine 50 mg p.o. twice daily, and Nebivolol 10 mg p.o. daily #Bilateral pleural effusions #Pulmonary hypertension Patient was found to have bilateral pleural effusions on imaging. His initial shortness of breath has now resolved. CTA showed Moderate right pleural effusion, mild left pleural effusions. -May require thoracenthesis of left lung but no thoracenthesis indicated for right lung #Coronary artery disease status post CABG Patient has history of CABG in 2009. He is currently on appropriate treatment. -Aspirin 81 mg p.o. daily and Atorvastatin 40 mg p.o. at bedtime #Chronic kidney disease, stage 3B #8 mm left thyroid nodule,12 mm right thyroid nodule Incidental findings on imaging #Peripheral artery disease #Type 2 diabetes mellitus #HLD -management per primary team Discussed case with my attending Dr. Roy. Thank you for allowing cardiology to contribute to this patient's case. Ibeth Wilson, PGY-2
[2024-04-01] MEDS: Magnesium Sulfate 1 gm Ivpb 1 GM/100 ML BAG IV (10:10)
[2024-04-01] MEDS: APIXABAN 2.5 MG TABLET PO ×2 (10:11→21:29)
[2024-04-01] MEDS: NEBIVOLOL HCL 5 MG TABLET (NON-FORMULARY) 10 MG PO (10:11)
[2024-04-01] MEDS: amLODIPine BESYLATE 5 MG TABLET 10 MG PO (10:11)
[2024-04-01] MEDS: POTASSIUM CHLORIDE 20 mEq TABCR 40 MEQ PO (10:11)
[2024-04-01] MEDS: PANTOPRAZOLE 40 MG TABLET PO (10:12)
[2024-04-01] MEDS: AMIODARONE HCL 200 MG TABLET PO (10:12)
[2024-04-01] MEDS: ASPIRIN EC 81 MG TABEC PO (10:12)
[2024-04-01] MEDS: cilostazoL 50 MG TABLET 100 MG PO (10:12)
[2024-04-01] MEDS: INSULIN GLARGINE (Lantus) 5 UNIT/0.05 ML (PER 5 UNITS) SC (11:17)
[2024-04-01 14:42] LABS: Albumin, Serum 3.7 gm/dL (3.4-4.8); Anion Gap 6 (7-16); BUN/Creatinine Ratio 19 Ratio (12-20); Blood Urea Nitrogen 39 mg/dL (9-23); Calcium (Corrected) 9.2 mg/dL (8.5-10.1); Chloride 103 mMol/L (98-107); Creatinine (Component) 2.1 mg/dL (0.6-1.3); Estimated Creatinine Clearance 28.2 mL/min (>60); Glucose 302 mg/dL (74-106); Osmolality,Calculated 286 (275-295); Phosphorous 3.4 mg/dL (2.4-5.1); Potassium 3.8 mMol/L (3.4-5.1); Sodium 133 mMol/L (136-145); eGFR 30 See Note
--- NOTE | 2024-04-01 15:07 | ESPR_ITS ---
<Statement entered by Scottie Alston MD - 04/06/24 09:04> Attending attestation: I reviewed above note and agree with findings and plans. I have also personally examined the patient with medicine team and went over assessment and plan with medical team including dietetic intern and resident physician. Documentation for date of: 04/01/24 Subjective Subjective Interval history: Dominik Willard is an 84-year-old male with a past medical history of CAD status post CABG 2009, hypertension, hyperlipidemia, type 2 diabetes mellitus, and PAD who presented on 03/29 with tachypnea and LINTON for 3-4 days. He was in his usual state of health and on his daily walk until 03/26 when he started to experience tachypnea and DO. His symptoms progressed and prompted him to visit the ED. He has never had to come to the ED for similar symptoms in the past, denies chest discomfort, denies lower extremity edema, and is not aware of a prior diagnosis of heart failure. He is followed outpatient by Dr. Roy. Otherwise, denies fever, chills, cough, abdominal pain, urinary symptoms, change in bowel movements. 03/30: No acute overnight events. Denies chest discomfort, shortness of breath, abdominal pain, nausea, vomiting. Patient has episodes of bradycardia dropping into the 30s usually when he is asleep or resting, but patient denies any episodes of lightheadedness or blurry vision. 10:30: No acute overnight events. Denies chest discomfort, shortness of breath, abdominal pain, nausea, vomiting. Noted to have new onset atrial fibrillation and so was started on eliquis 2.5 mg PO BID and amiodarone 200 mg PO BID. Given that these were started here in hospital, cardiology would like to monitor patient for one more day. 04/01: No acute overnight events. In light of increasing creatinine, Bumex was held. Repeat renal panel in early afternoon showed increase from 2.0 to 2.1 and so patient will stay for 1 more night. Exam Vital Signs Temp Pulse Resp BP Pulse Ox O2 Del Method O2 Flow Rate 97.8 F 48 L 20 130/66 96 Room Air 1 04/01/24 12:00 04/01/24 14:58 04/01/24 12:00 04/01/24 14:58 04/01/24 12:00 04/01/24 12:00 04/01/24 04:00 Narrative Exam General: AOx3, no acute distress, able to speak full sentences HEENT: NC/AT, mucous membranes moist, bilateral sclera anicteric Cardiovascular: Systolic murmur at left upper sternal border; S1/S2 present Pulmonary: clear to auscultation bilaterally, no rales/rhonchi/wheezes Abdominal: soft, non-tender, non-distended, no rebound/guarding, normal bowel sounds present Musculoskeletal: 1+ bilateral lower extremity edema; normal ROM Skin: warm and dry, intact, no rashes Neuro: CN II-XII intact, no focal deficits Objective Labs 04/01/24 04:52 04/01/24 14:10 Labs: Laboratory Results - last 24 hr 04/01/24 04/01/24 04:52 14:10 WBC 7.1 RBC 3.50 L Hgb 10.6 L Hct 31.3 L MCV 89 MCH 30.3 MCHC 33.9 RDW Std Deviation 49.1 H Plt Count 276 D Neut % (Auto) 65 Lymph % (Auto) 17 Dare % (Auto) 11 Eos % (Auto) 6 Baso % (Auto) 1 Neut # (Auto) 4.7 Lymph # (Auto) 1.2 Dare # (Auto) 0.8 Eos # (Auto) 0.4 Baso # (Auto) 0.1 Immature Gran # (Auto) 0.04 H Absolute Nucleated RBC 0.00 Immature Gran % 1 H Nucleated RBC % 0 Sodium 139 133 L Potassium 3.5 3.8 Chloride 107 103 Carbon Dioxide 25.3 24.0 Anion Gap 7 6 L BUN 38 H 39 H Creatinine 2.0 H 2.1 H Estim Creat Clear Calc 29.6 L 28.2 L eGFR 32 L 30 L BUN/Creatinine Ratio 19 19 Glucose 114 H 302 H D Calculated Osmolality 287 286 Calcium 9.4 9.0 Corrected Calcium 9.2 Phosphorus 3.4 Magnesium 1.8 Albumin 3.7 Quality Measures Quality Measures none Advance care planning discussed with:: patient and spouse Assessment & Plan Assessment Current Active Medications: Generic Name Dose Route Start Last Admin Trade Name Freq PRN Reason Stop Dose Admin Acetaminophen 650 mg 03/29/24 17:54 Acetaminophen 325 Mg Tablet PO 04/28/24 17:53 Q6H PRN Fever >100.4 Acetaminophen 650 mg 03/29/24 17:54 Acetaminophen 325 Mg Tablet PO 04/28/24 17:53 Q6H PRN PAIN SCALE 1-3 (mild Amiodarone HCl 200 mg 03/31/24 09:00 04/01/24 10:12 Amiodarone Hcl 200 Mg Tablet PO 04/30/24 08:59 200 mg BID DARRYL Administration Amlodipine Besylate 10 mg 03/29/24 18:05 04/01/24 10:11 Amlodipine Besylate 5 Mg Tablet PO 04/28/24 18:04 10 mg QDAY DARRYL Administration Apixaban 2.5 mg 03/31/24 09:00 04/01/24 10:11 Apixaban 2.5 Mg Tablet PO 04/30/24 08:59 2.5 mg BID DARRYL Administration Aspirin 81 mg 03/29/24 19:00 04/01/24 10:12 Aspirin Ec 81 Mg Tabec PO 04/28/24 18:59 81 mg DAILY DARRYL Administration Atorvastatin Calcium 40 mg 03/29/24 21:00 03/31/24 21:40 Atorvastatin Calcium 20 Mg Tablet PO 04/28/24 20:59 40 mg HS DARRYL Administration Cilostazol 100 mg 03/30/24 09:00 04/01/24 10:12 Cilostazol 50 Mg Tablet PO 04/29/24 08:59 100 mg DAILY DARRYL Administration Dextrose 25 ml 03/29/24 18:35 Dextrose 50%-Water Inj 50 Ml Syringe IV 04/28/24 18:34 Q15MIN PRN BG 50-70 responsive npo pt Dextrose 50 ml 03/29/24 18:35 Dextrose 50%-Water Inj 50 Ml Syringe IV 04/28/24 18:34 Q15MIN PRN BG <50 OR BG <70 & pt unresponsive Glucagon 1 mg 03/29/24 18:35 Glucagon Inj 1 Mg Vial IM Q15MIN PRN BG <70, and no IV access Hydralazine HCl 50 mg 03/30/24 08:15 04/01/24 14:58 Hydralazine Hcl 25 Mg Tablet PO 04/29/24 08:14 50 mg TID DARRYL Administration Insulin Glargine 5 unit 03/30/24 09:00 04/01/24 11:17 Insulin Glargine (Lantus) 5 Unit/0.05 Ml (Per 5 Units) SC 04/29/24 08:59 5 unit DAILY DARRYL Administration Insulin Human Lispro 0 unit 03/29/24 21:00 04/01/24 12:51 Insulin Lispro (Admelog) 1 Unit/0.01 Ml Unit SC 04/28/24 20:59 2 unit ACHS DARRYL Administration Protocol Nebivolol 10 mg 03/29/24 18:15 04/01/24 10:11 Nebivolol Hcl 5 Mg Tablet (Non-Formulary) PO 04/28/24 18:14 10 mg DAILY DARRYL Administration Ondansetron HCl 4 mg 03/29/24 17:54 Ondansetron Inj 2 Mg/Ml Inj 2 Ml IV 04/28/24 17:53 Q6H PRN NAUSEA OR VOMITING Protocol Pantoprazole Sodium 40 mg 03/30/24 09:00 04/01/24 10:12 Pantoprazole 40 Mg Tablet PO 04/29/24 08:59 40 mg QDAY DARRYL Administration Plan Dominik Willard is an 84-year-old male with a past medical history of CAD status post CABG 2009, hypertension, hyperlipidemia, type 2 diabetes mellitus, and PAD who presents with tachypnea and LINTON for 4 days. Patient states that he was in his usual state of health until Friday, on his daily 3/4 mile walk but experienced tachypnea and LINTON, which is unusual for him. Symptoms progressed and prompted him to visit the ED. He has never had to come to the ED for similar symptoms in the past, denies chest discomfort, denies lower extremity edema, and is not aware of a prior diagnosis of heart failure. He is followed outpatient by Dr. Roy. Admitted for work-up and evaluation for new onset heart failure. #Acute hypoxic respiratory failure #? HFrEF (03/29 EF 60-65%) LINTON for 4 days, BLE edema, BNP 400s, signs of vascular congestion on imaging. Given risk factors of HTN, T2DM, HLD, history of CABG and PAD, suspect ischemic cardiomyopathy causing HF. Echo 03/29: EF 60-65%, severe LA dilatation. -Cardiology consulted, appreciate recommendations -HOLD bumetanide 2 mg IV daily due to increasing creatinine -Monitor K and Mg, replete as necessary -Fluid restriction 1.5 L/day, daily weights, strict I/O #New onset atrial fibrillation -Amiodarone 200 mg p.o. twice daily -Apixaban 2.5 mg p.o. twice daily #Hypertensive urgency #Hypertension Will defer home benazepril given elevated creatinine and recent CTA. -Amlodipine 10 mg p.o. daily -Hydralazine 50 mg p.o. twice daily -Nebivolol 10 mg p.o. daily #Chronic kidney disease, stage 3B #Acute on chronic kidney injury Creatinine 1.7, baseline 1.4-1.8. GFR 39. -Monitor creatinine #Type 2 diabetes mellitus A1c 6.3%. Will defer home glipizide-metformin. On home Lantus 5 mg twice daily. -Lantus 5 mg daily -Sensitive SSI lispro #Coronary artery disease status post CABG Triglycerides wnl, cholesterol wnl, LDL wnl, HDL 38. -Aspirin 81 mg p.o. daily -Atorvastatin 40 mg p.o. at bedtime #Peripheral artery disease -Cilostazol 100 mg p.o. daily Hospital management: Disposition: 1 more hospital 9 Fluids: Will defer in light of CHF exacerbation Diet: Low-sodium Lines: Peripheral DVT prophylaxis: Eliquis GI prophylaxis: Pantoprazole 40 mg p.o. daily Bhagat: Not indicated CODE STATUS: full code ----- Plan discussed with attending physician Dr. Alecia Lopez MD PGY-1 Internal Medicine
[2024-04-01] MEDS: ATORVASTATIN CALCIUM 20 MG TABLET 40 MG PO (21:29)
--- NOTE | 2024-04-01 21:49 | PC.NURSE ---
2132, , Hospitalist Dr Resendez called and clarified emergency medicine specialist order for Hydralazine and amiodarone scheduled with pt pulse in the 50's. B/P okay 149/72 , Order recieved to give hydralazine med now, reassess Pulse in 30 minutes if raises can give amiodarone.
--- NOTE | 2024-04-01 22:45 | PC.NURSE ---
, hospitalist, Dr Resendez called at 2205 and notified of current HR of 48-low 50's at 30 minutes after hydralazine dose administered. Order to hold amiodarone dose recieved and not given. called at [phone] to notify of call from windmill technician x 2 episodes, HR down to 30 and 31, pt observed laying in bed sleeping. No new orders recieved.
[2024-04-02] VITALS (9 sets, daily range): BP systolic 130–148; BP diastolic 65–88; PULSE 46–65; RESP 12–98; TEMP 36.3–36.4; O2SAT 97–99; BMI 26.2
[2024-04-02] MEDS: hydrALAZINE HCL 25 MG TABLET 50 MG PO (05:55)
[2024-04-02 06:15] LABS: Basophils # (Auto) 0.1 Thou/mm3 (0.0-0.2); Basophils % (Auto) 1 % (0-2.5); Eosinophils # (Auto) 0.6 Thou/mm3 (0.0-0.5); Eosinophils % (Auto) 7 % (0-10); Hematocrit 30.8 % (41.0-53.0); Hemoglobin 10.6 g/dL (13.5-16.0); Immature Granulocytes % (Auto) 0 % (0-0); Immature Granulocytes Auto 0.03 Thou/mm3 (0.00-0.00); Lymphocytes # (Auto) 1.2 Thou/mm3 (1.0-4.8); Lymphocytes % (Auto) 16 % (10-50); Mean Corpuscular HGB Conc 34.4 g/dl (31.0-37.0); Mean Corpuscular Volume 90 fL (80-100); Monocytes # (Auto) 0.9 Thou/mm3 (0.0-0.8); Monocytes % (Auto) 11 % (0-12); Neutrophils # (Auto) 4.9 Thou/mm3 (1.8-7.7); Neutrophils % (Auto) 64 % (37-80); Nucleated Red Blood Cell % 0 /100 WBC (0); Platelet Count 233 Thou/mm3 (140-440); RDW Standard Deviation 48.4 fL (35.1-43.9); Red Blood Count 3.42 Miln/mm3 (4.50-5.90); White Blood Count 7.7 Thou/mm3 (3.8-10.6)
[2024-04-02 06:34] LABS: Anion Gap 5 (7-16); BUN/Creatinine Ratio 19 Ratio (12-20); Blood Urea Nitrogen 38 mg/dL (9-23); Calcium 9.1 mg/dL (8.3-10.6); Carbon Dioxide 24.2 mMol/L (20.0-31.0); Chloride 105 mMol/L (98-107); Estimated Creatinine Clearance 29.6 mL/min (>60); Glucose 106 mg/dL (74-106); Magnesium 1.9 mg/dL (1.6-2.6); Osmolality,Calculated 277 (275-295); Potassium 3.9 mMol/L (3.4-5.1); Sodium 134 mMol/L (136-145); eGFR 32 See Note
[2024-04-02] MEDS: INSULIN LISPRO (AdmeLOG) 1 UNIT/0.01 ML UNIT SC (07:54)
[2024-04-02] MEDS: APIXABAN 2.5 MG TABLET PO (09:06)
[2024-04-02] MEDS: PANTOPRAZOLE 40 MG TABLET PO (09:06)
[2024-04-02] MEDS: amLODIPine BESYLATE 5 MG TABLET 10 MG PO (09:07)
[2024-04-02] MEDS: ASPIRIN EC 81 MG TABEC PO (09:07)
[2024-04-02] MEDS: cilostazoL 50 MG TABLET 100 MG PO (09:08)
[2024-04-02] MEDS: INSULIN GLARGINE (Lantus) 5 UNIT/0.05 ML (PER 5 UNITS) SC (09:13)
--- NOTE | 2024-04-02 19:42 | ESDS_ITS ---
<Statement entered by Scottie Alston MD - 04/07/24 15:23> Attending attestation: I reviewed above note and agree with findings and plans. I have also personally examined the patient with medicine team and went over assessment and plan with medical team including brand marketing intern and resident physician. Planned Discharge Date 04/02/24 DS: Providers Provider Date of admission: 03/29/24 17:54 Primary care physician: Mendez Whiting MD Admitting Provider: Liang Metzger MD Attending Provider on Admission: Scottie Alston MD Consults: 03/29/24 18:00 Consult to Cardiology Routine Comment: New onset CHF Consulting Provider: Alfie Roy Attending Provider on DC: Brandi Pimentel MD Discharging Provider: Brandi Pimentel MD DS: Diagnosis Problem List Completed Was Problem List Reviewed/Reconciled?: Yes Hospital Course Hospital Course Hospital course: Ms. Willard is an 84-year-old male with a past medical history of CAD status post CABG, hypertension, hyperlipidemia, type II DM and PAD who presented to the ED on 03/29/2024 with a 4-day history of tachypnea and exertional dyspnea. Patient reported that his symptoms have progressed since he started and prompted him to visit the ED. He does follow asphalt engineer Dr. Roy as an outpatient. In the ED, patient was noted to be hypoxic, saturating 88 to 98% on room air and was put on 2 L of oxygen, hypertensive. Labs are significant for BNP of 4 3, tropes were negative. CT chest was done which was negative for PE, showed significant vascular congestion and moderate right and mild left pleural effusions. An EKG was done which showed A-fib with heart rate controlled at 61. The patient was admitted for management of acute hypoxic respiratory failure secondary to CHF exacerbation probably secondary to A-fib and hypertensive urgency with new onset atrial fibrillation. The patient was started on IV Lasix 40 mg daily with fluid restriction, amlodipine and hydralazine and nebivolol for management of hypertension. Protector Plate Attacher Dr. Roy was consulted and recommended to continue diuresis. . For new onset A-fib, the patient was started on amiodarone 200 mg twice daily and Eliquis 2.5 mg based on age and creatinine. Today, the patient is significantly improved, no longer short of breath, clinically and hemodynamically stable and medically cleared for discharge He is discharged on Lasix p.o. 20 mg daily and to continue amiodarone 200 mg twice daily and Eliquis 2.5 mg twice daily for A-fib. The patient is recommended to follow-up with his primary care provider within 1 week of discharge as well as cardiology within 2 weeks of discharge. Cilostazol was held, until patient has been seen by PCP and asphalt engineer. Continue with amiodarone 200 mg twice daily and Eliquis 2.5 mg twice daily for atrial fibrillation. Start taking Lasix 20 mg in the morning with close follow-up with PCP and repeat renal panel in 1 week. Hold cilostazole until seen by asphalt engineer and PCP. Follow-up with cardiology within 2 weeks of discharge. Follow-up with PCP within 1 week of discharge. Continue rest of home medications as prescribed. Stop Eliquis if bleeding occurs and go to ED. #Acute hypoxic respiratory failure #CHF exacerbation #History of HFrEF #New onset A-fib #Hypertensive urgency #Acute on chronic kidney injury #History of type II DM #History of CAD status post CABG Time Spent with Patient Time attestation: Total time spent providing and/or coordinating discharge services: Exam Vital Signs Temp Pulse Resp BP Pulse Ox O2 Del Method O2 Flow Rate 97.3 F 65 18 148/70 H 97 Room Air 1 04/02/24 12:00 04/02/24 12:00 04/02/24 12:00 04/02/24 12:00 04/02/24 12:00 04/02/24 12:00 04/01/24 04:00 Narrative Exam GENERAL: A&Ox3 . Awake, Not in acute distress NEURO: assistant associate professor grossly intact, moves extremities x4 HEENT: Atraumatic, Normocephalic. mucous membranes moist. Eyes open, symmetrical, & clear HEART: Normal Heart Sounds LUNGS: Clear to auscultation ABDOMEN: soft, non-distended, non-tender, bowel sounds heard, no guarding or rebound tenderness SKIN: No Rash or ecchymoses EXTREMITIES: No edema, tenderness, able to move all 4 extremities Discharge Plan Plan Patient Disposition: HOME (Self Care) Patient condition on transfer: Stable Care Plan Goals: Continue with amiodarone 200 mg twice daily and Eliquis 2.5 mg twice daily for atrial fibrillation. Start taking Lasix 20 mg in the morning with close follow-up with PCP and repeat renal panel in 1 week. Hold cilostazole until seen by asphalt engineer and PCP. Follow-up with cardiology within 2 weeks of discharge. Follow-up with PCP within 1 week of discharge. Continue rest of home medications as prescribed. Stop Eliquis if bleeding occurs and go to ED. Prescriptions/Referrals Prescriptions/Med Rec: New amiodarone 200 mg tablet 200 mg PO BID Qty: 60 0RF Eliquis 2.5 mg tablet 2.5 mg PO BID Qty: 60 0RF furosemide [Lasix] 20 mg tablet 20 mg PO QAM Qty: 30 0RF Continued atorvastatin [Lipitor] 40 MG tablet 40 mg PO DAILY Qty: 0 nebivolol [Bystolic] 10 MG tablet 10 mg PO DAILY Qty: 0 glipizide-metformin 5-500 mg Tablet 1 tab PO BID Hold Instructions: Resume on 08/20/20. start on friday aspirin 81 mg Tablet,Delayed Release (Dr/Ec) 81 mg PO QDAY Hold Instructions: Resume on 08/18/20. restart aspirin tomorrow multivitamin Tablet 2 tab PO QDAY amlodipine 10 mg tablet 10 mg PO QDAY ferrous sulfate [iron] 325 mg (65 mg iron) Tablet 65 mg PO QDAY insulin glargine [Lantus Solostar U-100 Insulin] 100 unit/mL (3 mL) insulin pen 10 unit SUBCUT QDAY hydralazine 50 mg tablet 50 mg PO TID Patient Comments: TAKE 1 TABLET BY MOUTH THREE TIMES A DAY WITH FOOD FOR 30 DAYS Held benazepril [Lotensin] 40 MG tablet 40 mg PO QDAY Qty: 0 Hold Instructions: Resume on 04/14/24. Hold for 2 days, follow-up outpatient with PCP, repeat CMP before restarting. cilostazol 50 mg tablet 100 mg PO BID Hold Instructions: Hold medication until seen by asphalt engineer and PCP. Referrals: Mendez Whiting MD [Primary Care Provider] - Patient/Caregiver Discharge Instructions Education Materials: Heart Failure Meds, What Is Heart Failure Print Language: Kyrgyz Stand Alone Forms: Varsha Award Info., Patient Portal Info Letter Discharge Order Discharge Orders: Discharge (Routine); Ordered 04/02/24 Ordered By: Lb Gaytan Quality Discharge Quality Measures none
== END 2024-04-02 12:02 | disposition home or self-care (01) | DRG 291 ==
LOC: SERX 15:46 → SERHOLD 18:17 → S2NX 22:01
PROVIDERS: Physician Assistant; Admitting Provider Internal Medicine; Emergency Provider Emergency Medicine; PCP Internal Medicine; Visit Provider Internal Medicine
DX: I13.0 Hypertensive heart and chronic kidney disease with heart failure and stage 1 through stage 4 chronic kidney disease, or unspecified chronic kidney disease (principal); I50.33 Acute on chronic diastolic (congestive) heart failure; J96.01 Acute respiratory failure with hypoxia; N17.9 Acute kidney failure, unspecified; N18.32 Chronic kidney disease, stage 3b; Z95.1 Presence of aortocoronary bypass graft; I25.10 Atherosclerotic heart disease of native coronary artery without angina pectoris; E78.5 Hyperlipidemia, unspecified; E11.22 Type 2 diabetes mellitus with diabetic chronic kidney disease; I16.0 Hypertensive urgency; E11.51 Type 2 diabetes mellitus with diabetic peripheral angiopathy without gangrene; H91.90 Unspecified hearing loss, unspecified ear; I48.91 Unspecified atrial fibrillation; I27.20 Pulmonary hypertension, unspecified; E04.1 Nontoxic single thyroid nodule; R00.1 Bradycardia, unspecified; I70.0 Atherosclerosis of aorta
CPT/HCPCS: 36415; 71046; 71275; 80048; 80053; 80061; 80069; 82010; 82947; 83036; 83690; 83735; 83880; 84100; 84439; 84443; 84484; 85025; 87400; 87811; 93005; 93306; 94762; 96374; 96376; 99285; A4649; J1643; J1815; J1940; J3475; J3490; Q9967; A9270; J1644

== ENCOUNTER → 2024-04-27 | Outpatient (CLI) | payer MEDICARE, SELFPAY ==
[2024-04-27 09:02] LABS: Albumin, Serum 4.1 gm/dL (3.4-4.8); Anion Gap 9 (7-16); BUN/Creatinine Ratio 18 Ratio (12-20); Blood Urea Nitrogen 38 mg/dL (9-23); Calcium 9.5 mg/dL (8.3-10.6); Calcium (Corrected) 9.5 mg/dL (8.5-10.1); Carbon Dioxide 24.5 mMol/L (20.0-31.0); Chloride 105 mMol/L (98-107); Creatinine (Component) 2.1 mg/dL (0.6-1.3); Glucose 101 mg/dL (74-106); Osmolality,Calculated 284 (275-295); Phosphorous 3.5 mg/dL (2.4-5.1); Potassium 4.3 mMol/L (3.4-5.1); Sodium 138 mMol/L (136-145); eGFR 30 See Note
== END | disposition home or self-care (01) ==
LOC: COPL 06:36
PROVIDERS: PCP Internal Medicine; Referring Provider Internal Medicine Cardiovascular Disease; Visit Provider Internal Medicine Cardiovascular Disease
DX: I25.118 Atherosclerotic heart disease of native coronary artery with other forms of angina pectoris (principal)
CPT/HCPCS: 36415; 80069

== ENCOUNTER → 2024-05-24 | Outpatient (CLI) | payer MEDICARE, SELFPAY ==
[2024-05-24 08:57] LABS: Albumin, Serum 3.9 gm/dL (3.4-4.8); Anion Gap 11 (7-16); BUN/Creatinine Ratio 21 Ratio (12-20); Blood Urea Nitrogen 51 mg/dL (9-23); Calcium 9.4 mg/dL (8.3-10.6); Calcium (Corrected) 9.5 mg/dL (8.5-10.1); Carbon Dioxide 21.1 mMol/L (20.0-31.0); Chloride 109 mMol/L (98-107); Creatinine (Component) 2.4 mg/dL (0.6-1.3); Glucose 137 mg/dL (74-106); Osmolality,Calculated 296 (275-295); Potassium 4.8 mMol/L (3.4-5.1); Sodium 141 mMol/L (136-145); eGFR 26 See Note
== END | disposition home or self-care (01) ==
LOC: COPL 06:44
PROVIDERS: PCP Internal Medicine; Referring Provider Internal Medicine Cardiovascular Disease; Visit Provider Internal Medicine Cardiovascular Disease
DX: I25.118 Atherosclerotic heart disease of native coronary artery with other forms of angina pectoris (principal); I74.3 Embolism and thrombosis of arteries of the lower extremities; I11.9 Hypertensive heart disease without heart failure; R06.02 Shortness of breath
CPT/HCPCS: 36415; 80069

== ENCOUNTER → 2024-06-08 | Outpatient (CLI) | payer MEDICARE, SELFPAY ==
[2024-06-08 08:51] LABS: Albumin, Serum 3.8 gm/dL (3.4-4.8); Anion Gap 13 (7-16); BUN/Creatinine Ratio 26 Ratio (12-20); Blood Urea Nitrogen 65 mg/dL (9-23); Calcium (Corrected) 9.2 mg/dL (8.5-10.1); Carbon Dioxide 20.9 mMol/L (20.0-31.0); Chloride 108 mMol/L (98-107); Creatinine (Component) 2.5 mg/dL (0.6-1.3); Glucose 133 mg/dL (74-106); Osmolality,Calculated 303 (275-295); Phosphorous 4.2 mg/dL (2.4-5.1); Potassium 3.9 mMol/L (3.4-5.1); Sodium 142 mMol/L (136-145); eGFR 25 See Note
== END | disposition home or self-care (01) ==
LOC: COPL 06:42
PROVIDERS: PCP Internal Medicine; Referring Provider Internal Medicine Cardiovascular Disease; Visit Provider Internal Medicine Cardiovascular Disease
DX: I48.21 Permanent atrial fibrillation (principal); I25.118 Atherosclerotic heart disease of native coronary artery with other forms of angina pectoris; I74.3 Embolism and thrombosis of arteries of the lower extremities; N18.32 Chronic kidney disease, stage 3b
CPT/HCPCS: 36415; 80069

== ENCOUNTER → 2024-07-09 | Outpatient (CLI) | payer MEDICARE, SELFPAY ==
--- NOTE | 2024-07-09 13:30 | XR_ITS ---
Examination: Retroperitoneal ultrasound, complete Technique: Multiple high resolution grayscale images of the retroperitoneum obtained, including kidneys and bladder. Exam date and time:July 09, 2024 1411 hours INDICATIONS: Acute renal insufficiency this week FINDINGS: Right kidney 9.0 cm renal cortex 1.3 cm Midpole 11 mm cyst lower pole 15 mm cyst Left kidney 11.9 cm cortex 2.1 cm Moderate bilateral renal parenchymal scar formation No bladder mass or bladder calculi Bladder prevoid volume 96 cc postvoid volume 18 cc Prostate volume 14 cc no prostate nodules IMPRESSION: Small right kidney Right renal cortical thinning Moderate bilateral renal parenchymal scar formation
== END | disposition home or self-care (01) ==
LOC: CDIM 13:37
PROVIDERS: PCP Internal Medicine; Referring Provider Internal Medicine; Visit Provider Internal Medicine
DX: N28.89 Other specified disorders of kidney and ureter (principal)
CPT/HCPCS: 76770

== ENCOUNTER → 2024-07-15 | Outpatient (CLI) | payer MEDICARE, SELFPAY ==
[2024-07-15 08:31] LABS: Basophils # (Auto) 0.1 Thou/mm3 (0.0-0.2); Basophils % (Auto) 1 % (0-2.5); Eosinophils # (Auto) 0.4 Thou/mm3 (0.0-0.5); Eosinophils % (Auto) 5 % (0-10); Hematocrit 29.3 % (41.0-53.0); Hemoglobin 9.8 g/dL (13.5-16.0); Immature Granulocytes % (Auto) 1 % (0-0); Immature Granulocytes Auto 0.06 Thou/mm3 (0.00-0.00); Lymphocytes # (Auto) 1.8 Thou/mm3 (1.0-4.8); Lymphocytes % (Auto) 24 % (10-50); Mean Corpuscular HGB Conc 33.4 g/dl (31.0-37.0); Mean Corpuscular Volume 90 fL (80-100); Monocytes # (Auto) 0.7 Thou/mm3 (0.0-0.8); Monocytes % (Auto) 9 % (0-12); Neutrophils # (Auto) 4.7 Thou/mm3 (1.8-7.7); Neutrophils % (Auto) 61 % (37-80); Nucleated Red Blood Cell % 0 /100 WBC (0); Platelet Count 338 Thou/mm3 (140-440); RDW Standard Deviation 54.4 fL (35.1-43.9); Red Blood Count 3.27 Miln/mm3 (4.50-5.90); White Blood Count 7.8 Thou/mm3 (3.8-10.6)
[2024-07-15 08:48] LABS: Glucose Estimated Average 148 mg/dL (80-131); Hemoglobin A1C 6.8 % Hgb (4.8-6.0)
[2024-07-15 08:50] LABS: Vitamin B12 909 pg/mL (211-911); Vitamin D 25 Hydroxy Total 65.8 ng/mL (7.3-40.2)
[2024-07-15 08:51] LABS: Alanine Aminotransferase 27 U/L (10-49); Albumin, Serum 3.8 gm/dL (3.4-4.8); Albumin/Globulin Ratio 1.4 (1.2-2.2); Alkaline Phosphatase 72 U/L (46-116); Anion Gap 9 (7-16); Aspartate Amino Transferase 16 U/L (0-34); BUN/Creatinine Ratio 26 Ratio (12-20); Bilirubin,Direct 0.2 mg/dL (0.0-0.3); Bilirubin,Total 0.6 mg/dL (0.3-1.2); Blood Urea Nitrogen 82 mg/dL (9-23); Calcium 9.3 mg/dL (8.3-10.6); Calcium (Corrected) 9.5 mg/dL (8.5-10.1); Carbon Dioxide 26.9 mMol/L (20.0-31.0); Cardiac Risk Estimate 3.1 RATIO (4.0-6.7); Chloride 104 mMol/L (98-107); Cholesterol 125 mg/dL (132-200); Creatinine (Component) 3.2 mg/dL (0.6-1.3); Globulin 2.7 gm/dL (2.3-3.5); Glucose 83 mg/dL (74-106); HDL Cholesterol 40 mg/dL (40-60); LDL Cholesterol,Calculated 67 mg/dL (0-130); Osmolality,Calculated 303 (275-295); Potassium 4.1 mMol/L (3.4-5.1); Sodium 140 mMol/L (136-145); Thyroid Stimulating Hormone 11.01 uIU/mL (0.55-4.78); Total Protein 6.5 gm/dL (5.7-8.2); Triglycerides 90 mg/dL (30-150); Uric Acid 10.1 mg/dL (3.7-9.2); eGFR 18 See Note
[2024-07-15 09:07] LABS: Collection Type, Urine Clean Catch
[2024-07-15 09:33] LABS: Bilirubin,Urine Negative (Negative); Blood,Urine Negative (Negative); Clarity,Urine Clear (Clear/Hazy); Color,Urine Yellow (Lt Yel-Yel); Glucose, Urine Negative (Negative); Hyaline Casts,Urine < 1 /hpf (0-1); Ketones,Urine Negative (Negative); Leukocyte Esterase,Urine Negative (Negative); Nitrite,Urine Negative (Negative); PH,Urine 6.5 (5.0-7.0); Protein,Urine 2+ (Neg - Trace); RBC,Urine 1 /hpf (0-3); Specific Gravity,Urine 1.019 (1.001-1.035); Squamous Epithelial Cell,Urine < 1 /hpf (0-5); Urobilinogen,Urine Negative mg/dL (0.0-1.0); WBC,Urine < 1 /hpf (0-5)
[2024-07-15 09:56] LABS: Creatinine MALB Rnd Ur 88 mg/dL (30-125); Microalbumin Creat Ratio 766 mg/gCrea (<30); Microalbumin, Random Urine 674 mg/L (0-300)
== END | disposition home or self-care (01) ==
LOC: COPL 06:41
PROVIDERS: PCP Internal Medicine Cardiovascular Disease; Referring Provider Internal Medicine; Visit Provider Internal Medicine
DX: I12.9 Hypertensive chronic kidney disease with stage 1 through stage 4 chronic kidney disease, or unspecified chronic kidney disease (principal); E11.22 Type 2 diabetes mellitus with diabetic chronic kidney disease; N18.4 Chronic kidney disease, stage 4 (severe); E78.5 Hyperlipidemia, unspecified
CPT/HCPCS: 36415; 80053; 80061; 81001; 82043; 82248; 82306; 82570; 82607; 83036; 84443; 84550; 85025

== ENCOUNTER → 2024-07-20 | Outpatient (CLI) | payer MEDICARE, SELFPAY ==
[2024-07-20 09:21] LABS: Albumin, Serum 3.8 gm/dL (3.4-4.8); Anion Gap 11 (7-16); BUN/Creatinine Ratio 24 Ratio (12-20); Blood Urea Nitrogen 70 mg/dL (9-23); Calcium 8.9 mg/dL (8.3-10.6); Calcium (Corrected) 9.1 mg/dL (8.5-10.1); Chloride 100 mMol/L (98-107); Creatinine (Component) 2.9 mg/dL (0.6-1.3); Glucose 81 mg/dL (74-106); Osmolality,Calculated 287 (275-295); Phosphorous 3.8 mg/dL (2.4-5.1); Potassium 4.4 mMol/L (3.4-5.1); Sodium 134 mMol/L (136-145); eGFR 21 See Note
== END | disposition home or self-care (01) ==
LOC: COPL 06:50
PROVIDERS: PCP Internal Medicine; Referring Provider Internal Medicine; Visit Provider Internal Medicine
DX: N17.9 Acute kidney failure, unspecified (principal)
CPT/HCPCS: 36415; 80069

== ENCOUNTER → 2024-08-04 | Outpatient (CLI) | payer MEDICARE, SELFPAY ==
[2024-08-04 08:04] LABS: Collection Type, Urine Catheter; Squamous Epithelial Cell,Urine 0 /hpf (0-5)
[2024-08-04 08:42] LABS: Albumin, Serum 3.9 gm/dL (3.4-4.8); Anion Gap 9 (7-16); BUN/Creatinine Ratio 25 Ratio (12-20); Blood Urea Nitrogen 68 mg/dL (9-23); Calcium 9.1 mg/dL (8.3-10.6); Calcium (Corrected) 9.2 mg/dL (8.5-10.1); Carbon Dioxide 25.1 mMol/L (20.0-31.0); Chloride 106 mMol/L (98-107); Creatinine (Component) 2.7 mg/dL (0.6-1.3); Glucose 116 mg/dL (74-106); Osmolality,Calculated 300 (275-295); Phosphorous 4.3 mg/dL (2.4-5.1); Potassium 4.8 mMol/L (3.4-5.1); Sodium 140 mMol/L (136-145); eGFR 22 See Note
[2024-08-04 09:00] LABS: Bilirubin,Urine Negative (Negative); Blood,Urine Negative (Negative); Clarity,Urine Clear (Clear/Hazy); Color,Urine Lt-Yellow (Lt Yel-Yel); Glucose, Urine Negative (Negative); Hyaline Casts,Urine < 1 /hpf (0-1); Ketones,Urine Negative (Negative); Leukocyte Esterase,Urine Negative (Negative); Nitrite,Urine Negative (Negative); Protein,Urine 2+ (Neg - Trace); RBC,Urine 1 /hpf (0-3); Urobilinogen,Urine Negative mg/dL (0.0-1.0); WBC,Urine 5 /hpf (0-5)
[2024-08-04 11:56] LABS: Basophils # (Auto) 0.1 Thou/mm3 (0.0-0.2); Basophils % (Auto) 1 % (0-2.5); Eosinophils # (Auto) 0.2 Thou/mm3 (0.0-0.5); Eosinophils % (Auto) 3 % (0-10); Hematocrit 29.3 % (41.0-53.0); Hemoglobin 9.7 g/dL (13.5-16.0); Immature Granulocytes % (Auto) 0 % (0-0); Immature Granulocytes Auto 0.03 Thou/mm3 (0.00-0.00); Lymphocytes # (Auto) 1.6 Thou/mm3 (1.0-4.8); Lymphocytes % (Auto) 23 % (10-50); Mean Corpuscular HGB Conc 33.1 g/dl (31.0-37.0); Mean Corpuscular Hemoglobin 30.2 pg (25.0-35.0); Mean Corpuscular Volume 91 fL (80-100); Monocytes # (Auto) 0.6 Thou/mm3 (0.0-0.8); Monocytes % (Auto) 8 % (0-12); Neutrophils # (Auto) 4.5 Thou/mm3 (1.8-7.7); Neutrophils % (Auto) 65 % (37-80); Nucleated Red Blood Cell % 0 /100 WBC (0); Platelet Count 289 Thou/mm3 (140-440); Red Blood Count 3.21 Miln/mm3 (4.50-5.90)
== END | disposition home or self-care (01) ==
LOC: COPL 06:38
PROVIDERS: PCP Internal Medicine; Referring Provider Internal Medicine; Visit Provider Internal Medicine
DX: N17.9 Acute kidney failure, unspecified (principal); I10 Essential (primary) hypertension
CPT/HCPCS: 36415; 80069; 81001; 85025

== ENCOUNTER → 2024-09-21 | Outpatient (CLI) | payer MEDICARE, SELFPAY ==
[2024-09-21 08:46] LABS: Albumin, Serum 3.8 gm/dL (3.4-4.8); Anion Gap 8 (7-16); BUN/Creatinine Ratio 17 Ratio (12-20); Blood Urea Nitrogen 43 mg/dL (9-23); Calcium 9.1 mg/dL (8.3-10.6); Calcium (Corrected) 9.3 mg/dL (8.5-10.1); Carbon Dioxide 25.9 mMol/L (20.0-31.0); Chloride 106 mMol/L (98-107); Creatinine (Component) 2.5 mg/dL (0.6-1.3); Glucose 100 mg/dL (74-106); Osmolality,Calculated 290 (275-295); Phosphorous 4.3 mg/dL (2.4-5.1); Potassium 4.3 mMol/L (3.4-5.1); Sodium 140 mMol/L (136-145); eGFR 25 See Note
== END | disposition home or self-care (01) ==
LOC: COPL 06:39
PROVIDERS: PCP Internal Medicine; Referring Provider Internal Medicine; Visit Provider Internal Medicine
DX: N18.30 Chronic kidney disease, stage 3 unspecified (principal)
CPT/HCPCS: 36415; 80069

== ENCOUNTER 2024-10-27 16:18 | Emergency (ER) | payer MEDICARE, SELFPAY ==
--- NOTE | 2024-10-27 16:21 | XR_ITS ---
Examination:Left hip AP, lateral, AP pelvis 3 views Technique: Hip AP lateral, AP pelvis, 3 views Exam date and time:October 27, 2024 1532 hours INDICATIONS: Patient fell 5 days ago with intraoperative left hip, left hip pain FINDINGS: No acute left hip fracture or hip dislocation Healed old fracture right hip Bones of the pelvis intact Radiation prostate seeds IMPRESSION: No acute left hip fracture noted.
[2024-10-27 16:29] VITALS: PULSE 60; RESP 16; O2SAT 97; BMI 24.3
[2024-10-27 16:30] VITALS: BP 137/64; PULSE 52; RESP 20; TEMP 36.9; O2SAT 95
--- NOTE | 2024-10-27 16:36 | PD.EDADULT ---
ED General RME/HPI General Chief complaint: Fall Stated complaint: FALL Time Seen by Provider: 10/27/24 16:21 Arrival date/time: 10/27/24 16:18 RME / HPI RME / HPI narrative: DR. WEI MAIN ED EVALUATION: 84 year old male presents to the Emergency Department [facility] with complaint of increased bilateral hip pain after fall on 10/23/2024. Per patient, he was using his walker when his legs gave out and he fell on the ground. No loss of consciousness. No other symptoms reported at this time. PMHx: CAD status post CABG 2009, hypertension, hyperlipidemia, type 2 diabetes mellitus, and PAD. Patient is on Eliquis. Social Hx: No tobacco, alcohol, or substance use. Related Data Home Medications ?Medication ?Instructions ?Recorded ?Confirmed atorvastatin 40 mg tablet (Lipitor) 40 mg PO DAILY ##0 04/18/12 03/30/24 nebivolol 10 mg tablet (Bystolic) 10 mg PO DAILY ##0 04/18/12 03/30/24 benazepril 40 mg tablet (Lotensin) 40 mg PO QDAY #0 tabs 11/09/14 03/30/24 Held on 03/31/24. Instructions: Resume on 04/14/24. Hold for 2 days, follow-up outpatient with PCP, repeat CMP before restarting. aspirin 81 mg tablet,delayed 81 mg PO QDAY 08/17/20 03/30/24 release glipizide 5 mg-metformin 500 mg 1 tab PO BID 08/17/20 03/30/24 tablet amlodipine 10 mg tablet 10 mg PO QDAY 01/05/21 03/30/24 cilostazol 50 mg tablet 100 mg PO BID 01/05/21 03/30/24 Held on 04/01/24. Instructions: Hold medication until seen by brand ambassador and PCP. ferrous sulfate 325 mg (65 mg 65 mg PO QDAY 01/05/21 03/30/24 iron) tablet (iron) insulin glargine 100 unit/mL (3 10 unit subcut QDAY 01/05/21 03/30/24 mL) subcutaneous pen (Lantus Solostar U-100 Insulin) multivitamin 2 tab PO QDAY 01/05/21 03/30/24 hydralazine 50 mg tablet 50 mg PO TID 03/30/24 03/30/24 Previous Rx's ?Medication ?Instructions ?Recorded amiodarone 200 mg tablet 200 mg PO BID #60 tabs 04/01/24 apixaban 2.5 mg tablet (Eliquis) 2.5 mg PO BID #60 tabs 04/01/24 furosemide 20 mg tablet (Lasix) 20 mg PO QAM #30 tabs 04/01/24 Allergies Allergy/AdvReac Type Severity Reaction Status Date / Time No Known Allergies Allergy Verified 01/06/21 11:48 Review of Systems Review of Systems Systems Reviewed: All systems reviewed, normal except as documented Narrative Review of Systems: GEN: No fever, no chills, no weight loss EYES: No discharge, no visual changes, no pain HEENT: No ear pain, no congestion, no sore throat PULM: No shortness of breath, no cough, no congestion CV: No chest pain, no dyspnea on exertion, no palpitations GI: No nausea, no vomiting, no diarrhea, no pain, no constipation : No frequency, no urgency and no dysuria MUSC/SKEL: + increased bilateral hip pain, no back pain SKIN: No rash PSYCH: No hallucinations, no depression HEME/LYMPH: No easy bleeding or bruising tendencies NEURO: No weakness, no headache Past Medical History Past Medical History CARDIAC: Positive Cardiac Disorders, Coronary Artery Disease, Hypercholesterolemia and Hypertension RESPIRATORY: Positive Pneumonia GASTROINTESTINAL: Positive Gall Bladder Disease GENITOURINARY: Positive Prostate Cancer MUSCULOSKELETAL: Positive Arthritis and Fractures ENT: Positive Deafness ENDOCRINE: Positive Diabetes Mellitus Type 2 OTHER HISTORY: Positive Cancer and Prostate Cancer Surgical History SURGICAL: Positive Cardiac Surgery, Open Heart Surgery, Coronary Artery Bypass Graft and Eye Surgery Social History SMOKING STATUS: Never smoker SUBSTANCE USE: does not use ALCOHOL: Never ED Exam Narrative Physical exam: GENERAL APPEARANCE: alert and oriented x 4, well-developed, well-nourished VITALS: All vitals were reviewed and the pulse ox is 95% on room air, which is normal according to my interpretation. HEENT: Normocephalic, atraumatic; pupils equal, round, reactive to light; EOMI; mucous membranes pink, moist; oropharynx clear NECK: Supple LUNGS: CTABL; no wheezes, no rales, no rhonchi HEART: Regular rate, regular rhythm; normal S1, S2; no murmurs ABDOMEN: non distended; normal BS; soft, no tenderness, no guarding, no rebound; no masses, no organomegaly, no hernia BACK: no CVA tenderness EXTREMITIES: right leg shortening and externally rotated compared to the left leg NEUROLOGIC: awake; alert and oriented x4; cranial nerves II-XII grossly intact; no focal sensory or motor deficits PSYCHIATRIC: appropriate mood and affect SKIN: warm, dry, normal color; no rashes Course Quality Measures none Orders Category Date Time Status XR hip LT w pelvis min 4V Stat Exams 10/27/24 16:21 Completed XR hip RT w pelvis min 4V Stat Exams 10/27/24 17:42 Completed Vital Signs Vital signs: Vital Signs Temperature 98.4 F 10/27/24 16:30 Pulse Rate 52 L 10/27/24 16:30 Respiratory Rate 20 10/27/24 16:30 Blood Pressure 137/64 H 10/27/24 16:30 Pulse Oximetry (%) 95 10/27/24 16:30 Oxygen Delivery Method Room Air 10/27/24 16:30 Discharge Plan Prescriptions/Referrals Prescriptions/Med Rec: No Action atorvastatin [Lipitor] 40 MG tablet 40 mg PO DAILY Qty: 0 nebivolol [Bystolic] 10 MG tablet 10 mg PO DAILY Qty: 0 benazepril [Lotensin] 40 MG tablet 40 mg PO QDAY Qty: 0 glipizide-metformin 5-500 mg Tablet 1 tab PO BID aspirin 81 mg Tablet,Delayed Release (Dr/Ec) 81 mg PO QDAY multivitamin Tablet 2 tab PO QDAY cilostazol 50 mg tablet 100 mg PO BID amlodipine 10 mg tablet 10 mg PO QDAY ferrous sulfate [iron] 325 mg (65 mg iron) Tablet 65 mg PO QDAY insulin glargine [Lantus Solostar U-100 Insulin] 100 unit/mL (3 mL) insulin pen 10 unit SUBCUT QDAY hydralazine 50 mg tablet 50 mg PO TID Patient Comments: TAKE 1 TABLET BY MOUTH THREE TIMES A DAY WITH FOOD FOR 30 DAYS amiodarone 200 mg tablet 200 mg PO BID Qty: 60 0RF Eliquis 2.5 mg tablet 2.5 mg PO BID Qty: 60 0RF furosemide [Lasix] 20 mg tablet 20 mg PO QAM Qty: 30 0RF Referrals: Mendez Whiting MD [Primary Care Provider] - In 1 week Patient/Caregiver Discharge Instructions Print Language: Thai MDM Narrative MDM hospital course: I, Anna Iyer, am scribing for and in the presence of Dr. Wei. Clinical Information Provided by patient and EMS Medical Records Reviewed EMS Meds/Rx Considered, not Ordered None Labs/Rad/Tests considered, not Ordered None Chronic Illness/Social Conditions Add or document further as needed: PMHx: CAD status post CABG 2009 (not oxygen dependent at home ), hypertension, hyperlipidemia, type 2 diabetes mellitus, and PAD. Patient is on Eliquis. Social Hx: No tobacco, alcohol, or substance use. Imaging Imaging interpretation: other (pending xrays) Medication Administration(s) none Diagnosis Differential diagnosis: hip fracture, fall, hip contusion Most likely dx, and/or detailed dx discussion: No official diagnoses at this time, still pending diagnostic tests. Patient signout to the night clerk provider. Dispositon Disposition: other (Patient signout to the night clerk provider, pending x-rays and final disposition.)
--- NOTE | 2024-10-27 17:42 | XR_ITS ---
Examination: Right femur 2 views TECHNIQUE: AP lateral right femur 2 views Exam date and time:October 27, 2024 1743 hours INDICATIONS: Patient fell 5 days ago with injury to the right femur, femur pain. Healed fracture right hip Orthopedic hardware including long intramedullary jaymie satisfactory position No acute femoral shaft fracture IMPRESSION: No acute femur fracture
[2024-10-27 18:15] VITALS: BP 139/69; PULSE 57; RESP 16; TEMP 36.4; O2SAT 96
--- NOTE | 2024-10-27 18:23 | PD.EDADDENDU ---
Emergency Room Addendum <Uma Goodson - Last Filed: 10/27/24 22:19> Addendum Narrative: I took over the care from previous shift physician at 6 PM on 10/27/2024. See previous notes for complete H & P and ED course. I reviewed all diagnostic test results. My interpretation of the Left hip with Pelvis x-ray is no acute left hip fracture noted. My interpretation of the Right hip with Pelvis x-ray is no acute femur fracture. My review of the Head/Brain CT report is Negative for acute hemorrhage, mass effect or midline shift. My review of the L-Spine CT report is No acute lumbar fracture. My review of the T-Spine CT report is No acute thoracic fracture. My review of the C-Spine CT report is No acute cervical fracture. My review of the Chest/Abdomen/Pelvis CT report is Thoracic aorta pulmonary arteries intact. No hemopericardium. No pneumothorax or hemothorax. No abdominal parenchymal laceration. Abdominal aorta intact. No free blood in the abdomen or pelvis. Osseous structures appear intact. Diagnoses include: Contusion. Treatment here included Hydrocodone Based on my best medical judgment, made decision no further evaluation or treatment indicated at this time. Patient understands and agrees to the discharge instructions customized and printed, see below. Discharge Instructions from Dr. Yan printed for you: 1. Fortunately, there is no very serious injury. Such as brain injury or broken neck or broken back or other broken bone or internal organ injury. 2. But with severe contusions, you can have significant pain for several weeks. 3. Despite the pain, try to stand and ambulate slightly more every single day. Because prolonged inactivity is terrible for your body. 4. Apply ice or heat if helpful. 5. Lidocaine patches and [place] for help with the pain. 6. See a private doctor on 10/29/2024 for recheck and further care. Ask for help until you are completely better, including physical therapy at the house or outpatient therapy. 7. Seek immediate medical care with worsening or with any concerns. Destin Yan MD <Destin Yan MD - Last Filed: 10/27/24 22:38> Addendum Narrative: I took over the care from previous shift physician at 6 PM on 10/27/2024. See previous notes for complete H & P and ED course. I reviewed all diagnostic test results. My interpretation of the Left hip with Pelvis x-ray is no acute left hip fracture noted. My interpretation of the Right hip with Pelvis x-ray is no acute femur fracture. My review of the Head/Brain CT report is Negative for acute hemorrhage, mass effect or midline shift. My review of the L-Spine CT report is No acute lumbar fracture. My review of the T-Spine CT report is No acute thoracic fracture. My review of the C-Spine CT report is No acute cervical fracture. My review of the Chest/Abdomen/Pelvis CT report is no acute findings. Diagnoses include: Contusions. Treatment here included [place]. He felt much better. Recommended supportive care. Based on my best medical judgment, made decision no further evaluation or treatment indicated at this time. Patient understands and agrees to the discharge instructions customized and printed, see below. Discharge Instructions from Dr. Yan printed for you: 1. Fortunately, there is no very serious injury. Such as brain injury or broken neck or broken back or other broken bone or internal organ injury. 2. But with severe contusions, you can have significant pain for several weeks. 3. Despite the pain, try to stand and ambulate slightly more every single day. Because prolonged inactivity is terrible for your body. 4. Apply ice or heat if helpful. 5. Lidocaine patches and [place] for help with the pain. 6. See a private doctor on 10/29/2024 for recheck and further care. Ask for help until you are completely better, including physical therapy at the house or outpatient therapy. 7. Seek immediate medical care with worsening or with any concerns. Destin Yan MD
[2024-10-27] MEDS: HYDROcodone/APAP 5/325 TABLET 2 TAB PO (18:29)
--- NOTE | 2024-10-27 19:25 | XR_ITS ---
Examination: CT cervical spine without contrast 2-D sagittal reconstructions 2-D coronal reconstructions 3-D reconstructions. Exam date and time:October 27, 2024, 2051 hours INDICATIONS: Patient fell today with injury to the neck, neck pain CTDI:vol (mGy) 9.39 DLP: (mGycm) 210 Technique: Multiple 2 mm axial sections of the cervical spine have been obtained. The coronal and sagittal reconstructions have been obtained. 3-D reconstructions have been obtained. Low dose protocols were performed. One or more of the following dose reduction techniques were used; automated exposure control, adjustment of the mA and/or KV according to patient size, use of iterative reconstruction technique. Findings: Axial sections demonstrate intact base of the skull. C1 exhibit satisfactory relationship to the odontoid. No acute cervical vertebral body fracture seen. Alignment posterior spinous processes satisfactory. Advanced disc narrowing C5-C6, C6-C7 Impression: No acute cervical fracture.
--- NOTE | 2024-10-27 19:25 | XR_ITS ---
Examination: CT chest, without intravenous contrast. CT abdomen, without intravenous contrast. CT pelvis, without intravenous contrast. 2-D sagittal and coronal reconstructions. 3-D reconstructions. Date and time of exam:October 27, 2024, 2055 hours INDICATIONS: Patient fell today with image of the chest and abdomen, chest pain abdomen pain CTDI vol (mgy) 10.6 DLP (MGycm)834 Technique: Multiple CT images, 3.0 mm slice thickness, obtained chest, abdomen, pelvis, with the high-resolution 64 slice scanner.. Sagittal and coronal 2-D reconstructions are obtained. 3-D reconstructions Low dose protocols were performed. One or more of the following dose reduction techniques were used; automated exposure control, adjustment of the mA and/or KV according to patient size, use of iterative reconstruction technique. Findings: Heavy thoracic aortic calcification Heavy coronary artery calcification. No hemopericardium Small cavitary lesions in the right upper lobe, axial images 116 through 121 No pneumothorax Atelectasis in the left lower lobe No hemothorax No sternal thoracic or lumbar fracture Ribs appear intact No liver splenic or renal laceration Heavy calcification abdominal aorta, abdominal aorta intact No free blood in the abdomen or pelvis Negative for pneumoperitoneum Urinary bladder intact Bones of the pelvis intact as well as hips Old healed fracture right hip IMPRESSION: Thoracic aorta pulmonary arteries intact No hemopericardium No pneumothorax or hemothorax No abdominal parenchymal laceration Abdominal aorta intact No free blood in the abdomen or pelvis Osseous structures appear intact
--- NOTE | 2024-10-27 19:25 | XR_ITS ---
Examination: CT thoracic spine, without contrast. 2-D sagittal reconstructions. 2-D coronal reconstructions. 3-D reconstructions. Date and time of exam:October 27, 2024 2101 hours INDICATIONS: Patient fell today with injury to the upper back, upper back pain CTDI: vol (mGy):38.2 DLP: (mGycm):1474 Technique: Multiple 1.25 mm axial sections of the thoracic spine without intravenous contrast have been obtained. 2-D sagittal and coronal reconstructions have been obtained. 3-D reconstructions have been obtained. Low dose protocols were performed. One or more of the following dose reduction techniques were used; automated exposure control, adjustment of the mA and/or KV according to patient size, use of iterative reconstruction technique. Findings: Prominent osteopenia No thoracic vertebral body compression fracture Mild diffuse thoracic disc narrowing Thoracic pedicles lamina transverse and posterior spinous processes appear intact No focal thoracic disc protrusion Old appearing fracture off the posterior spinous process of T4, noted on the CT chest March 29, 2024 IMPRESSION: No acute thoracic fracture
--- NOTE | 2024-10-27 19:25 | XR_ITS ---
Examination: CT brain head without contrast. 2-D sagittal coronal reconstructions Date and time of exam:October 27, 20242049 hours INDICATIONS: Patient fell today with injury to the head, head pain CTDI: vol (mGy):54.9 DLP: (mGycm):1095 Technique: Multiple CT axial sections of the brain have been obtained, 5 mm slice thickness. Contrast has not been administered. 2-D sagittal, coronal reconstructions have been obtained Low dose protocols were performed. One or more of the following dose reduction techniques were used; automated exposure control, adjustment of the mA and/or KV according to patient size, use of iterative reconstruction technique. Findings: No significant ventricular enlargement. Encephalomalacia in the posterior left parietal lobe Intra-axial or extra-axial hemorrhage density is not seen. No mass effect or midline shift Basal cisterns are not remarkable. Fourth ventricle is midline. Cranial vault intact. Impression: Negative for acute hemorrhage, mass effect or midline shift
--- NOTE | 2024-10-27 19:25 | XR_ITS ---
Examination: CT lumbar spine, without contrast. 2-D sagittal reconstructions. 2-D coronal reconstructions. 3-D reconstructions. Date and time of exam: October 27, 2024 2101 hours INDICATIONS: Patient fell today with injury to lower back, lower back pain CTDI: vol (mGy):41.3 DLP: (mGycm): 1004 and 75 Technique: Multiple 1.25 mm axial sections of the lumbar spine without intravenous contrast have been obtained. 2-D sagittal and coronal reconstructions have been obtained. 3-D reconstructions have been obtained. Low dose protocols were performed. One or more of the following dose reduction techniques were used; automated exposure control, adjustment of the mA and/or KV according to patient size, use of iterative reconstruction technique. Findings: Prominent osteopenia Adequate alignment lumbar vertebral bodies No lumbar vertebral body compression fracture Lumbar pedicles, laminae, transverse and posterior spinous processes appear intact L5-S1 4 mm central lumbar disc bulge L4-L5 3 mm central lumbar disc bulge IMPRESSION: No acute lumbar fracture
[2024-10-27 21:14] VITALS: O2SAT 97
[2024-10-27 22:00] VITALS: BP 121/53; PULSE 47; RESP 15; O2SAT 97
[2024-10-27 23:00] VITALS: BP 123/53; PULSE 47; RESP 12; TEMP 36.4; O2SAT 95
[2024-10-28] VITALS: BP 147/62; PULSE 52; RESP 21; TEMP 36.6; O2SAT 97
== END 2024-10-28 00:47 | disposition home or self-care (01) ==
PROVIDERS: Emergency Provider Emergency Medicine; PCP Internal Medicine
DX: S70.02XA Contusion of left hip, initial encounter (principal); S00.93XA Contusion of unspecified part of head, initial encounter; S10.93XA Contusion of unspecified part of neck, initial encounter; S20.219A Contusion of unspecified front wall of thorax, initial encounter; S30.1XXA Contusion of abdominal wall, initial encounter; S30.0XXA Contusion of lower back and pelvis, initial encounter; S20.229A Contusion of unspecified back wall of thorax, initial encounter; S70.11XA Contusion of right thigh, initial encounter; W01.0XXA Fall on same level from slipping, tripping and stumbling without subsequent striking against object, initial encounter
CPT/HCPCS: 70450; 71250; 72125; 72128; 72131; 73503; 73552; 74176; 99284; A9270

== ENCOUNTER → 2024-11-17 | Outpatient (CLI) | payer MEDICARE, SELFPAY ==
[2024-11-17 08:47] LABS: Basophils # (Auto) 0.1 Thou/mm3 (0.0-0.2); Basophils % (Auto) 1 % (0-2.5); Eosinophils # (Auto) 0.2 Thou/mm3 (0.0-0.5); Eosinophils % (Auto) 2 % (0-10); Hematocrit 29.8 % (41.0-53.0); Hemoglobin 10.5 g/dL (13.5-16.0); Immature Granulocytes % (Auto) 0 % (0-0); Immature Granulocytes Auto 0.04 Thou/mm3 (0.00-0.00); Lymphocytes # (Auto) 1.8 Thou/mm3 (1.0-4.8); Lymphocytes % (Auto) 20 % (10-50); Mean Corpuscular HGB Conc 35.2 g/dl (31.0-37.0); Mean Corpuscular Hemoglobin 30.9 pg (25.0-35.0); Mean Corpuscular Volume 88 fL (80-100); Monocytes # (Auto) 0.8 Thou/mm3 (0.0-0.8); Monocytes % (Auto) 8 % (0-12); Neutrophils # (Auto) 6.3 Thou/mm3 (1.8-7.7); Neutrophils % (Auto) 69 % (37-80); Nucleated Red Blood Cell % 0 /100 WBC (0); Platelet Count 302 Thou/mm3 (140-440); RDW Standard Deviation 48.4 fL (35.1-43.9); White Blood Count 9.2 Thou/mm3 (3.8-10.6)
[2024-11-17 09:13] LABS: Albumin, Serum 3.5 gm/dL (3.4-4.8); Anion Gap 13 (7-16); BUN/Creatinine Ratio 17 Ratio (12-20); Blood Urea Nitrogen 52 mg/dL (9-23); Calcium 8.7 mg/dL (8.3-10.6); Calcium (Corrected) 9.1 mg/dL (8.5-10.1); Carbon Dioxide 20.4 mMol/L (20.0-31.0); Chloride 103 mMol/L (98-107); Glucose 117 mg/dL (74-106); Osmolality,Calculated 286 (275-295); Phosphorous 3.2 mg/dL (2.4-5.1); Potassium 3.4 mMol/L (3.4-5.1); Sodium 136 mMol/L (136-145); eGFR 20 See Note
[2024-11-17 10:44] LABS: Collection Type, Urine Clean Catch
[2024-11-17 11:00] LABS: Bilirubin,Urine Negative (Negative); Blood,Urine Negative (Negative); Clarity,Urine Clear (Clear/Hazy); Color,Urine Yellow (Lt Yel-Yel); Glucose, Urine Negative (Negative); Hyaline Casts,Urine 1 /hpf (0-1); Ketones,Urine Negative (Negative); Leukocyte Esterase,Urine Negative (Negative); Nitrite,Urine Negative (Negative); PH,Urine 5.5 (5.0-7.0); Protein,Urine 1+ (Neg - Trace); RBC,Urine 2 /hpf (0-3); Specific Gravity,Urine 1.015 (1.001-1.035); Squamous Epithelial Cell,Urine 5 /hpf (0-5); Urobilinogen,Urine Negative mg/dL (0.0-1.0); WBC,Urine 2 /hpf (0-5)
[2024-11-17 12:30] LABS: Creatinine MALB Rnd Ur 135 mg/dL (30-125); Microalbumin Creat Ratio 281 mg/gCrea (<30); Microalbumin, Random Urine > 380 mg/L (0-300)
== END | disposition home or self-care (01) ==
LOC: COPL 06:54
PROVIDERS: PCP Internal Medicine; Referring Provider Internal Medicine; Visit Provider Internal Medicine
DX: N17.9 Acute kidney failure, unspecified (principal); E11.9 Type 2 diabetes mellitus without complications; I10 Essential (primary) hypertension
CPT/HCPCS: 36415; 80069; 81001; 82043; 82570; 85025

== ENCOUNTER → 2024-12-30 | Outpatient (CLI) | payer MEDICARE, SELFPAY ==
[2024-12-30 09:11] LABS: Albumin, Serum 3.6 gm/dL (3.4-4.8); Anion Gap 8 (7-16); BUN/Creatinine Ratio 17 Ratio (12-20); Blood Urea Nitrogen 44 mg/dL (9-23); Calcium 8.7 mg/dL (8.3-10.6); Calcium (Corrected) 9.0 mg/dL (8.5-10.1); Carbon Dioxide 24.1 mMol/L (20.0-31.0); Chloride 107 mMol/L (98-107); Creatinine (Component) 2.6 mg/dL (0.6-1.3); Glucose 109 mg/dL (74-106); Osmolality,Calculated 289 (275-295); Phosphorous 3.9 mg/dL (2.4-5.1); Potassium 3.8 mMol/L (3.4-5.1); Sodium 139 mMol/L (136-145); eGFR 23 See Note
== END | disposition home or self-care (01) ==
LOC: COPL 07:02
PROVIDERS: PCP Internal Medicine; Referring Provider Internal Medicine; Visit Provider Internal Medicine
DX: N17.9 Acute kidney failure, unspecified (principal)
CPT/HCPCS: 36415; 80069

== ENCOUNTER → 2025-02-24 | Outpatient (CLI) | payer MEDICARE, SELFPAY ==
[2025-02-24 07:54] LABS: Collection Type, Urine Clean Catch
[2025-02-24 08:40] LABS: Basophils # (Auto) 0.0 Thou/mm3 (0.0-0.2); Basophils % (Auto) 1 % (0-2.5); Eosinophils # (Auto) 0.4 Thou/mm3 (0.0-0.5); Eosinophils % (Auto) 6 % (0-10); Hematocrit 28.9 % (41.0-53.0); Hemoglobin 9.7 g/dL (13.5-16.0); Immature Granulocytes Auto 0.04 Thou/mm3 (0.00-0.00); Lymphocytes # (Auto) 1.2 Thou/mm3 (1.0-4.8); Lymphocytes % (Auto) 20 % (10-50); Mean Corpuscular HGB Conc 33.6 g/dl (31.0-37.0); Mean Corpuscular Hemoglobin 31.7 pg (25.0-35.0); Mean Corpuscular Volume 94 fL (80-100); Monocytes # (Auto) 0.6 Thou/mm3 (0.0-0.8); Monocytes % (Auto) 10 % (0-12); Neutrophils # (Auto) 3.8 Thou/mm3 (1.8-7.7); Neutrophils % (Auto) 62 % (37-80); Nucleated Red Blood Cell # 0.00 Thou/mm3 (0.00-0.00); Nucleated Red Blood Cell % 0 /100 WBC (0); Platelet Count 278 Thou/mm3 (140-440); RDW Standard Deviation 52.2 fL (35.1-43.9); Red Blood Count 3.06 Miln/mm3 (4.50-5.90); White Blood Count 6.2 Thou/mm3 (3.8-10.6)
[2025-02-24 09:03] LABS: Glucose Estimated Average 126 mg/dL (80-131); Hemoglobin A1C 6.0 % Hgb (4.8-6.0)
[2025-02-24 09:20] LABS: Alanine Aminotransferase 39 U/L (10-49); Albumin, Serum 3.6 gm/dL (3.4-4.8); Albumin/Globulin Ratio 1.3 (1.2-2.2); Alkaline Phosphatase 71 U/L (46-116); Anion Gap 10 (7-16); Aspartate Amino Transferase 37 U/L (0-34); BUN/Creatinine Ratio 19 Ratio (12-20); Bilirubin,Total 0.4 mg/dL (0.3-1.2); Blood Urea Nitrogen 46 mg/dL (9-23); Calcium 8.6 mg/dL (8.3-10.6); Calcium (Corrected) 8.9 mg/dL (8.5-10.1); Carbon Dioxide 22.9 mMol/L (20.0-31.0); Chloride 107 mMol/L (98-107); Creatinine (Component) 2.4 mg/dL (0.6-1.3); Globulin 2.7 gm/dL (2.3-3.5); Glucose 72 mg/dL (74-106); Osmolality,Calculated 290 (275-295); Potassium 3.9 mMol/L (3.4-5.1); Sodium 140 mMol/L (136-145); Thyroid Stimulating Hormone 24.24 uIU/mL (0.55-4.78); Total Protein 6.3 gm/dL (5.7-8.2); eGFR 26 See Note
[2025-02-24 09:20] LABS: Bilirubin,Urine Negative (Negative); Blood,Urine Negative (Negative); Clarity,Urine Clear (Clear/Hazy); Color,Urine Lt-Yellow (Lt Yel-Yel); Glucose, Urine Negative (Negative); Ketones,Urine Negative (Negative); Leukocyte Esterase,Urine Negative (Negative); Nitrite,Urine Negative (Negative); PH,Urine 5.5 (5.0-7.0); Protein,Urine 1+ (Neg - Trace); RBC,Urine 5 /hpf (0-3); Specific Gravity,Urine 1.018 (1.001-1.035); Squamous Epithelial Cell,Urine 5 /hpf (0-5); Urobilinogen,Urine Negative mg/dL (0.0-1.0); WBC,Urine 2 /hpf (0-5)
[2025-02-24 09:44] LABS: Cardiac Risk Estimate 2.8 RATIO (4.0-6.7); Cholesterol 113 mg/dL (132-200); HDL Cholesterol 40 mg/dL (40-60); LDL Cholesterol,Calculated 58 mg/dL (0-130); Triglycerides 77 mg/dL (30-150)
[2025-02-24 13:17] LABS: Creatinine MALB Rnd Ur 82 mg/dL (30-125); Microalbumin Creat Ratio 855 mg/gCrea (<30); Microalbumin, Random Urine 701 mg/L (0-300)
[2025-02-24 14:12] LABS: Parathyroid Hormone Intact 55.7 pg/ml (18.5-88.0)
== END | disposition home or self-care (01) ==
LOC: COPL 06:42
PROVIDERS: PCP Internal Medicine; Referring Provider Internal Medicine; Visit Provider Internal Medicine
DX: I12.9 Hypertensive chronic kidney disease with stage 1 through stage 4 chronic kidney disease, or unspecified chronic kidney disease (principal); N18.4 Chronic kidney disease, stage 4 (severe); E78.5 Hyperlipidemia, unspecified
CPT/HCPCS: 36415; 80053; 80061; 81001; 82043; 82570; 83036; 83970; 84443; 85025

== ENCOUNTER → 2025-03-07 | Outpatient (CLI) | payer MEDICARE, SELFPAY ==
[2025-03-07 08:34] LABS: Basophils # (Auto) 0.1 Thou/mm3 (0.0-0.2); Basophils % (Auto) 1 % (0-2.5); Eosinophils # (Auto) 0.3 Thou/mm3 (0.0-0.5); Eosinophils % (Auto) 4 % (0-10); Hematocrit 28.1 % (41.0-53.0); Hemoglobin 9.4 g/dL (13.5-16.0); Immature Granulocytes Auto 0.04 Thou/mm3 (0.00-0.00); Lymphocytes # (Auto) 1.1 Thou/mm3 (1.0-4.8); Lymphocytes % (Auto) 16 % (10-50); Mean Corpuscular HGB Conc 33.5 g/dl (31.0-37.0); Mean Corpuscular Hemoglobin 31.2 pg (25.0-35.0); Mean Corpuscular Volume 93 fL (80-100); Monocytes # (Auto) 0.7 Thou/mm3 (0.0-0.8); Monocytes % (Auto) 10 % (0-12); Neutrophils # (Auto) 4.5 Thou/mm3 (1.8-7.7); Neutrophils % (Auto) 68 % (37-80); Nucleated Red Blood Cell # 0.00 Thou/mm3 (0.00-0.00); Nucleated Red Blood Cell % 0 /100 WBC (0); Platelet Count 262 Thou/mm3 (140-440); RDW Standard Deviation 51.4 fL (35.1-43.9); Red Blood Count 3.01 Miln/mm3 (4.50-5.90); White Blood Count 6.6 Thou/mm3 (3.8-10.6)
[2025-03-07 08:45] LABS: Albumin, Serum 3.4 gm/dL (3.4-4.8); Anion Gap 11 (7-16); BUN/Creatinine Ratio 13 Ratio (12-20); Blood Urea Nitrogen 35 mg/dL (9-23); Calcium 8.6 mg/dL (8.3-10.6); Calcium (Corrected) 9.1 mg/dL (8.5-10.1); Carbon Dioxide 23.4 mMol/L (20.0-31.0); Chloride 105 mMol/L (98-107); Creatinine (Component) 2.7 mg/dL (0.6-1.3); Glucose 56 mg/dL (74-106); Osmolality,Calculated 283 (275-295); Phosphorous 3.9 mg/dL (2.4-5.1); Potassium 3.7 mMol/L (3.4-5.1); Sodium 139 mMol/L (136-145); eGFR 22 See Note
[2025-03-07 09:00] LABS: Ferritin 526 ng/mL (10.5-307.3); Iron 59 mcg/dL (65-175); Percent Iron Saturation 27 % (20-55); Total Iron Binding Capacity 212 mcg/dL (250-425); Unsaturated Iron Binding 153 (225-295)
== END | disposition home or self-care (01) ==
LOC: COPL 07:05
PROVIDERS: PCP Internal Medicine; Referring Provider Internal Medicine; Visit Provider Internal Medicine
DX: N18.4 Chronic kidney disease, stage 4 (severe) (principal); D63.1 Anemia in chronic kidney disease
CPT/HCPCS: 36415; 80069; 82728; 83540; 83550; 85025

== ENCOUNTER → 2025-05-03 | Outpatient (CLI) | payer MEDICARE, SELFPAY ==
[2025-05-03 08:33] LABS: Basophils # (Auto) 0.1 Thou/mm3 (0.0-0.2); Basophils % (Auto) 1 % (0-2.5); Eosinophils # (Auto) 0.4 Thou/mm3 (0.0-0.5); Eosinophils % (Auto) 5 % (0-10); Hematocrit 29.6 % (41.0-53.0); Hemoglobin 9.8 g/dL (13.5-16.0); Immature Granulocytes Auto 0.04 Thou/mm3 (0.00-0.00); Lymphocytes # (Auto) 1.7 Thou/mm3 (1.0-4.8); Lymphocytes % (Auto) 21 % (10-50); Mean Corpuscular HGB Conc 33.1 g/dl (31.0-37.0); Mean Corpuscular Hemoglobin 31.8 pg (25.0-35.0); Mean Corpuscular Volume 96 fL (80-100); Monocytes # (Auto) 0.8 Thou/mm3 (0.0-0.8); Monocytes % (Auto) 10 % (0-12); Neutrophils # (Auto) 5.0 Thou/mm3 (1.8-7.7); Neutrophils % (Auto) 63 % (37-80); Nucleated Red Blood Cell # 0.00 Thou/mm3 (0.00-0.00); Nucleated Red Blood Cell % 0 /100 WBC (0); Platelet Count 273 Thou/mm3 (140-440); RDW Standard Deviation 55.7 fL (35.1-43.9); Red Blood Count 3.08 Miln/mm3 (4.50-5.90); White Blood Count 7.9 Thou/mm3 (3.8-10.6)
[2025-05-03 08:38] LABS: Albumin, Serum 3.8 gm/dL (3.4-4.8); Anion Gap 11 (7-16); BUN/Creatinine Ratio 16 Ratio (12-20); Blood Urea Nitrogen 48 mg/dL (9-23); Calcium 8.6 mg/dL (8.3-10.6); Calcium (Corrected) 8.8 mg/dL (8.5-10.1); Carbon Dioxide 21.5 mMol/L (20.0-31.0); Chloride 109 mMol/L (98-107); Creatinine (Component) 3.0 mg/dL (0.6-1.3); Glucose 82 mg/dL (74-106); Osmolality,Calculated 292 (275-295); Phosphorous 4.7 mg/dL (2.4-5.1); Potassium 4.1 mMol/L (3.4-5.1); Sodium 141 mMol/L (136-145); eGFR 20 See Note
== END | disposition home or self-care (01) ==
LOC: COPL 06:40
PROVIDERS: PCP Internal Medicine; Referring Provider Internal Medicine; Visit Provider Internal Medicine
DX: I12.9 Hypertensive chronic kidney disease with stage 1 through stage 4 chronic kidney disease, or unspecified chronic kidney disease (principal); N18.4 Chronic kidney disease, stage 4 (severe)
CPT/HCPCS: 36415; 80069; 85025